=== PATIENT | female | born 1935 | race Caucasian/White ===

== ENCOUNTER → 2017-06-29 | Outpatient (CLI) | payer MEDICARE | END | disposition home or self-care (01) | LOC: PLD 07:24 → LAB SHORT 07:24 | DX: D48.5 Neoplasm of uncertain behavior of skin (principal) | CPT/HCPCS: 88305 ==

== ENCOUNTER → 2017-10-14 | Outpatient (CLI) | payer MEDICARE ==
[2017-10-16 10:35] LABS: Stool Occult Bld Immuno 1 Negative (NEGATIVE); Stool Occult Bld Immuno 2 Negative (NEGATIVE)
== END ==
LOC: OLS 08:55 → LAB SHORT 08:55
PROVIDERS: Internal Medicine Gastroenterology
DX: R19.4 Change in bowel habit (principal)
CPT/HCPCS: 82274

== ENCOUNTER 2019-08-18 05:22 | Inpatient (IN) | payer MEDICARE ==
[~2019-08-18] VITALS: Ht 157.5 cm; Wt 61.3 kg
[2019-08-18] MEDS ORDERED: Jantoven4 MG PO (05:30)
[2019-08-18] MEDS ORDERED: ATOR10 PO (05:31)
[2019-08-18] MEDS ORDERED: LOSARTAN-HCTZ1 EAC3 PO (05:31)
[2019-08-18] MEDS ORDERED: POTA8 PO (05:31)
[2019-08-18] MEDS ORDERED: ATENOLOL25 MG PO (05:31)
[2019-08-18 05:55] LABS: Source, Urine Voided
[2019-08-18 05:58] LABS: Bilirubin, Urine Neg (Neg); Blood, Urine 3+ (Neg); Glucose Qualitative, Urine Neg (Neg); Ketones, Urine 1+ (Neg); Leukocyte Esterase, Urine 1+ (Neg); Nitrite, Urine Neg (Neg); Protein, Urine Neg (Neg); Specific Gravity, Urine 1.025 (1.003-1.022); Urobilinogen, Urine NORM (Normal)
[2019-08-18 06:03] LABS: Appearance, Urine Hazy (Clear); Color, Urine Yellow (P-Yellow)
[2019-08-18 06:05] LABS: Bacteria Mod /hpf; Squamous Epithelial Cells Mod /hpf (Few); White Blood Cells, Urine 0-2 /hpf (0-5)
[2019-08-18 06:06] LABS: Mucus Light (0-Heavy)
[2019-08-18 06:10] LABS: Alanine Aminotransfer (ALT/SGP 36 U/L (12-78); Albumin, Blood 3.4 g/dL (3.4-5.0); Albumin/Globulin Ratio 0.8 (0.8-1.8); Alk Phos 103 U/L (50-136); Anion Gap 7 mmol/L (6-16); Aspartate Aminotrans (AST/SGOT 33 U/L (12-37); Bilirubin, Total 0.9 mg/dL (0.1-1.0); Blood Urea Nitrogen 26 mg/dL (8-24); Bun/Creatinine Ratio 45.9 (12.0-20.0); CO2, Blood 25 mmol/L (21-32); Calcium, Blood 9.3 mg/dL (8.5-10.1); Chloride, Blood 106 mmol/L (98-108); Creatinine, Blood 0.57 mg/dL (0.40-1.00); Globulin, Blood 4.2 g/dL (2.2-4.0); Glomerular Filtration Rate >60 (60-); Glucose, Blood 160 mg/dL (70-99); Potassium, Blood 3.9 mmol/L (3.5-5.5); Sodium, Blood 138 mmol/L (136-145); Total Protein, Blood 7.6 g/dL (6.4-8.2)
[2019-08-18 08:18] LABS: BASOPHILS ABSOLUTE AUTO 0.02 K/mm3 (0.00-0.23); BASOPHILS PERCENT AUTO 0 % (0-2); EOSINOPHILS ABSOLUTE AUTO 0.02 K/mm3 (0.00-0.68); EOSINOPHILS PERCENT AUTO 0 % (0-6); Hematocrit 40.9 % (33.0-51.0); Hemoglobin 15.3 g/dL (11.5-16.0); IMMATURE GRAN ABSOLUTE AUTO 0.02 K/mm3 (0.00-0.10); IMMATURE GRAN PERCENT AUTO 0 % (0-1); LYMPHOCYTES PERCENT AUTO 10 % (21-46); MONOCYTES ABSOLUTE AUTO 0.46 K/mm3 (0.16-1.47); MONOCYTES PERCENT AUTO 7 % (4-13); Mean Corpuscular HGB 38.6 pg (26.0-34.0); Mean Corpuscular HGB Conc 37.4 g/dL (31.5-36.5); Mean Corpuscular Volume 103 fL (80-100); Mean Platelet Volume 10.3 fL (9.1-12.4); NEUTROPHILS PERCENT AUTO 82 % (41-73); Platelet Count 160 K/mm3 (150-400); RDW Coefficient Variation 15.6 % (11.7-14.2); Red Blood Cell Count 3.96 M/mm3 (3.80-5.20); White Blood Cell Count 6.72 K/mm3 (4.00-11.30)
[2019-08-18 12:25] LABS: International Normalized Ratio 2.69; Prothrombin Time Results 27.2 Sec (9.7-11.5)
[2019-08-19 04:36] LABS: International Normalized Ratio 3.65; Prothrombin Time Results 36.3 Sec (9.7-11.5)
[2019-08-19 04:43] LABS: Alanine Aminotransfer (ALT/SGP 25 U/L (12-78); Albumin, Blood 2.8 g/dL (3.4-5.0); Albumin/Globulin Ratio 0.8 (0.8-1.8); Alk Phos 78 U/L (50-136); Anion Gap 8 mmol/L (6-16); Aspartate Aminotrans (AST/SGOT 22 U/L (12-37); Bilirubin, Total 1.8 mg/dL (0.1-1.0); Blood Urea Nitrogen 13 mg/dL (8-24); Bun/Creatinine Ratio 26.4 (12.0-20.0); CHOL/HDL RATIO 2.7; CO2, Blood 26 mmol/L (21-32); Calcium, Blood 8.5 mg/dL (8.5-10.1); Chloride, Blood 104 mmol/L (98-108); Cholesterol 114 mg/dL (50-200); Creatinine, Blood 0.49 mg/dL (0.40-1.00); Globulin, Blood 3.5 g/dL (2.2-4.0); Glomerular Filtration Rate >60 (60-); Glucose, Blood 102 mg/dL (70-99); HDL Cholesterol 42 mg/dL (>39); LDL/HDL RATIO 1.3; Low Density Lipoprotein Chol 55 mg/dL (0-110); Potassium, Blood 3.7 mmol/L (3.5-5.5); Sodium, Blood 138 mmol/L (136-145); Total Protein, Blood 6.3 g/dL (6.4-8.2); Triglycerides 83 mg/dL (30-160); Very Low Density Lipoprot Chol 16 mg/dL (6-32)
[2019-08-19 06:17] LABS: BASOPHILS ABSOLUTE AUTO 0.03 K/mm3 (0.00-0.23); BASOPHILS PERCENT AUTO 0 % (0-2); EOSINOPHILS ABSOLUTE AUTO 0.03 K/mm3 (0.00-0.68); EOSINOPHILS PERCENT AUTO 0 % (0-6); Hematocrit 40.3 % (33.0-51.0); Hemoglobin 14.7 g/dL (11.5-16.0); IMMATURE GRAN ABSOLUTE AUTO 0.04 K/mm3 (0.00-0.10); IMMATURE GRAN PERCENT AUTO 1 % (0-1); LYMPHOCYTES ABSOLUTE AUTO 0.71 K/mm3 (0.84-5.20); LYMPHOCYTES PERCENT AUTO 9 % (21-46); MONOCYTES ABSOLUTE AUTO 1.03 K/mm3 (0.16-1.47); MONOCYTES PERCENT AUTO 13 % (4-13); Mean Corpuscular HGB 37.5 pg (26.0-34.0); Mean Corpuscular HGB Conc 36.5 g/dL (31.5-36.5); Mean Corpuscular Volume 103 fL (80-100); Mean Platelet Volume 10.1 fL (9.1-12.4); NEUTROPHILS ABSOLUTE AUTO 6.25 K/mm3 (1.96-9.15); NEUTROPHILS PERCENT AUTO 77 % (41-73); NRBC ABSOLUTE 0.04 K/mm3 (0.00-0.02); NRBC Auto 0.5 /100 WBC (0.0-0.2); Platelet Count 159 K/mm3 (150-400); RDW Coefficient Variation 16.5 % (11.7-14.2); RDW Standard Deviation 49.1 fL (35.1-46.3); Red Blood Cell Count 3.92 M/mm3 (3.80-5.20); White Blood Cell Count 8.09 K/mm3 (4.00-11.30)
[2019-08-20 05:31] LABS: International Normalized Ratio 3.55; Prothrombin Time Results 35.4 Sec (9.7-11.5)
[2019-08-20 05:41] LABS: Alanine Aminotransfer (ALT/SGP 23 U/L (12-78); Albumin, Blood 2.6 g/dL (3.4-5.0); Albumin/Globulin Ratio 0.7 (0.8-1.8); Alk Phos 74 U/L (50-136); Anion Gap 6 mmol/L (6-16); Aspartate Aminotrans (AST/SGOT 21 U/L (12-37); Blood Urea Nitrogen 10 mg/dL (8-24); Bun/Creatinine Ratio 18.3 (12.0-20.0); CO2, Blood 26 mmol/L (21-32); Calcium, Blood 8.7 mg/dL (8.5-10.1); Chloride, Blood 107 mmol/L (98-108); Creatinine, Blood 0.55 mg/dL (0.40-1.00); Globulin, Blood 3.6 g/dL (2.2-4.0); Glomerular Filtration Rate >60 (60-); Glucose, Blood 105 mg/dL (70-99); Potassium, Blood 3.8 mmol/L (3.5-5.5); Sodium, Blood 139 mmol/L (136-145); Total Protein, Blood 6.2 g/dL (6.4-8.2)
[2019-08-20 06:32] LABS: BASOPHILS ABSOLUTE AUTO 0.03 K/mm3 (0.00-0.23); BASOPHILS PERCENT AUTO 0 % (0-2); EOSINOPHILS ABSOLUTE AUTO 0.07 K/mm3 (0.00-0.68); EOSINOPHILS PERCENT AUTO 1 % (0-6); Hematocrit 38.9 % (33.0-51.0); Hemoglobin 14.4 g/dL (11.5-16.0); IMMATURE GRAN ABSOLUTE AUTO 0.03 K/mm3 (0.00-0.10); IMMATURE GRAN PERCENT AUTO 0 % (0-1); LYMPHOCYTES ABSOLUTE AUTO 1.33 K/mm3 (0.84-5.20); LYMPHOCYTES PERCENT AUTO 15 % (21-46); MONOCYTES ABSOLUTE AUTO 1.45 K/mm3 (0.16-1.47); MONOCYTES PERCENT AUTO 16 % (4-13); Mean Corpuscular HGB 39.2 pg (26.0-34.0); Mean Platelet Volume 10.5 fL (9.1-12.4); NEUTROPHILS ABSOLUTE AUTO 6.07 K/mm3 (1.96-9.15); NEUTROPHILS PERCENT AUTO 68 % (41-73); Platelet Count 153 K/mm3 (150-400); RDW Coefficient Variation 16.6 % (11.7-14.2); RDW Standard Deviation 51.4 fL (35.1-46.3); Red Blood Cell Count 3.67 M/mm3 (3.80-5.20); White Blood Cell Count 8.98 K/mm3 (4.00-11.30)
[2019-08-20 06:34] LABS: Mean Corpuscular Volume 106 fL (80-100)
[2019-08-21 04:19] LABS: International Normalized Ratio 2.58; Prothrombin Time Results 26.2 Sec (9.7-11.5)
[2019-08-21 04:25] LABS: Alanine Aminotransfer (ALT/SGP 23 U/L (12-78); Albumin, Blood 2.5 g/dL (3.4-5.0); Albumin/Globulin Ratio 0.7 (0.8-1.8); Alk Phos 80 U/L (50-136); Anion Gap 5 mmol/L (6-16); Aspartate Aminotrans (AST/SGOT 24 U/L (12-37); Bilirubin, Total 2.5 mg/dL (0.1-1.0); Blood Urea Nitrogen 11 mg/dL (8-24); Bun/Creatinine Ratio 18.5 (12.0-20.0); CO2, Blood 27 mmol/L (21-32); Calcium, Blood 8.8 mg/dL (8.5-10.1); Chloride, Blood 109 mmol/L (98-108); Globulin, Blood 3.6 g/dL (2.2-4.0); Glomerular Filtration Rate >60 (60-); Glucose, Blood 110 mg/dL (70-99); Potassium, Blood 3.7 mmol/L (3.5-5.5); Sodium, Blood 141 mmol/L (136-145); Total Protein, Blood 6.1 g/dL (6.4-8.2)
[2019-08-21 04:27] LABS: BASOPHILS ABSOLUTE AUTO 0.02 K/mm3 (0.00-0.23); BASOPHILS PERCENT AUTO 0 % (0-2); EOSINOPHILS ABSOLUTE AUTO 0.09 K/mm3 (0.00-0.68); EOSINOPHILS PERCENT AUTO 1 % (0-6); Hematocrit 39.5 % (33.0-51.0); Hemoglobin 14.3 g/dL (11.5-16.0); IMMATURE GRAN ABSOLUTE AUTO 0.04 K/mm3 (0.00-0.10); IMMATURE GRAN PERCENT AUTO 1 % (0-1); LYMPHOCYTES ABSOLUTE AUTO 1.29 K/mm3 (0.84-5.20); LYMPHOCYTES PERCENT AUTO 15 % (21-46); MONOCYTES ABSOLUTE AUTO 1.58 K/mm3 (0.16-1.47); MONOCYTES PERCENT AUTO 18 % (4-13); Mean Corpuscular HGB 37.2 pg (26.0-34.0); Mean Corpuscular HGB Conc 36.2 g/dL (31.5-36.5); Mean Platelet Volume 10.1 fL (9.1-12.4); NEUTROPHILS ABSOLUTE AUTO 5.82 K/mm3 (1.96-9.15); NEUTROPHILS PERCENT AUTO 66 % (41-73); Platelet Count 162 K/mm3 (150-400); RDW Coefficient Variation 15.3 % (11.7-14.2); RDW Standard Deviation 49.5 fL (35.1-46.3); Red Blood Cell Count 3.84 M/mm3 (3.80-5.20); White Blood Cell Count 8.84 K/mm3 (4.00-11.30)
[2019-08-21 04:28] LABS: Mean Corpuscular Volume 103 fL (80-100)
[2019-08-22 04:18] LABS: International Normalized Ratio 1.88; Prothrombin Time Results 19.4 Sec (9.7-11.5)
[2019-08-22 04:21] LABS: BASOPHILS ABSOLUTE AUTO 0.02 K/mm3 (0.00-0.23); BASOPHILS PERCENT AUTO 0 % (0-2); EOSINOPHILS ABSOLUTE AUTO 0.19 K/mm3 (0.00-0.68); EOSINOPHILS PERCENT AUTO 2 % (0-6); Hematocrit 38.9 % (33.0-51.0); Hemoglobin 14.1 g/dL (11.5-16.0); IMMATURE GRAN ABSOLUTE AUTO 0.03 K/mm3 (0.00-0.10); IMMATURE GRAN PERCENT AUTO 0 % (0-1); LYMPHOCYTES ABSOLUTE AUTO 1.56 K/mm3 (0.84-5.20); LYMPHOCYTES PERCENT AUTO 19 % (21-46); MONOCYTES ABSOLUTE AUTO 1.52 K/mm3 (0.16-1.47); MONOCYTES PERCENT AUTO 19 % (4-13); Mean Corpuscular HGB 36.6 pg (26.0-34.0); Mean Corpuscular HGB Conc 36.2 g/dL (31.5-36.5); Mean Corpuscular Volume 101 fL (80-100); Mean Platelet Volume 9.9 fL (9.1-12.4); NEUTROPHILS ABSOLUTE AUTO 4.77 K/mm3 (1.96-9.15); NEUTROPHILS PERCENT AUTO 59 % (41-73); Platelet Count 169 K/mm3 (150-400); RDW Coefficient Variation 14.6 % (11.7-14.2); RDW Standard Deviation 49.1 fL (35.1-46.3); Red Blood Cell Count 3.85 M/mm3 (3.80-5.20); White Blood Cell Count 8.09 K/mm3 (4.00-11.30)
[2019-08-22 04:29] LABS: Magnesium, Blood 1.9 mg/dL (1.6-2.4)
[2019-08-22 04:30] LABS: Alanine Aminotransfer (ALT/SGP 24 U/L (12-78); Albumin, Blood 2.6 g/dL (3.4-5.0); Albumin/Globulin Ratio 0.7 (0.8-1.8); Alk Phos 91 U/L (50-136); Anion Gap 6 mmol/L (6-16); Aspartate Aminotrans (AST/SGOT 20 U/L (12-37); Bilirubin, Total 2.3 mg/dL (0.1-1.0); Blood Urea Nitrogen 12 mg/dL (8-24); Bun/Creatinine Ratio 22.5 (12.0-20.0); CO2, Blood 26 mmol/L (21-32); Chloride, Blood 107 mmol/L (98-108); Creatinine, Blood 0.53 mg/dL (0.40-1.00); Globulin, Blood 3.8 g/dL (2.2-4.0); Glomerular Filtration Rate >60 (60-); Glucose, Blood 95 mg/dL (70-99); Potassium, Blood 3.7 mmol/L (3.5-5.5); Sodium, Blood 139 mmol/L (136-145); Total Protein, Blood 6.4 g/dL (6.4-8.2)
[2019-08-23 05:50] LABS: International Normalized Ratio 1.7; Prothrombin Time Results 17.7 Sec (9.7-11.5)
[2019-08-23 06:13] LABS: Alanine Aminotransfer (ALT/SGP 27 U/L (12-78); Albumin, Blood 2.5 g/dL (3.4-5.0); Albumin/Globulin Ratio 0.6 (0.8-1.8); Alk Phos 104 U/L (50-136); Anion Gap 8 mmol/L (6-16); Aspartate Aminotrans (AST/SGOT 29 U/L (12-37); Bilirubin, Total 1.5 mg/dL (0.1-1.0); Blood Urea Nitrogen 11 mg/dL (8-24); Bun/Creatinine Ratio 21.5 (12.0-20.0); CO2, Blood 24 mmol/L (21-32); Calcium, Blood 8.9 mg/dL (8.5-10.1); Chloride, Blood 107 mmol/L (98-108); Creatinine, Blood 0.51 mg/dL (0.40-1.00); Globulin, Blood 3.9 g/dL (2.2-4.0); Glomerular Filtration Rate >60 (60-); Glucose, Blood 94 mg/dL (70-99); Potassium, Blood 3.8 mmol/L (3.5-5.5); Sodium, Blood 139 mmol/L (136-145); Total Protein, Blood 6.4 g/dL (6.4-8.2)
[2019-08-24 05:25] LABS: International Normalized Ratio 1.38; Prothrombin Time Results 14.5 Sec (9.7-11.5)
[2019-08-25 05:07] LABS: Alanine Aminotransfer (ALT/SGP 38 U/L (12-78); Albumin, Blood 2.8 g/dL (3.4-5.0); Albumin/Globulin Ratio 0.7 (0.8-1.8); Alk Phos 114 U/L (50-136); Anion Gap 5 mmol/L (6-16); Aspartate Aminotrans (AST/SGOT 35 U/L (12-37); BASOPHILS ABSOLUTE AUTO 0.03 K/mm3 (0.00-0.23); BASOPHILS PERCENT AUTO 0 % (0-2); Bilirubin, Total 1.2 mg/dL (0.1-1.0); Blood Urea Nitrogen 12 mg/dL (8-24); Bun/Creatinine Ratio 18.9 (12.0-20.0); CO2, Blood 28 mmol/L (21-32); Calcium, Blood 9.2 mg/dL (8.5-10.1); Chloride, Blood 106 mmol/L (98-108); Creatinine, Blood 0.63 mg/dL (0.40-1.00); EOSINOPHILS ABSOLUTE AUTO 0.02 K/mm3 (0.00-0.68); EOSINOPHILS PERCENT AUTO 0 % (0-6); Glomerular Filtration Rate >60 (60-); Glucose, Blood 103 mg/dL (70-99); Hematocrit 40.6 % (33.0-51.0); Hemoglobin 14.4 g/dL (11.5-16.0); IMMATURE GRAN ABSOLUTE AUTO 0.04 K/mm3 (0.00-0.10); IMMATURE GRAN PERCENT AUTO 1 % (0-1); LYMPHOCYTES ABSOLUTE AUTO 1.14 K/mm3 (0.84-5.20); LYMPHOCYTES PERCENT AUTO 16 % (21-46); MONOCYTES ABSOLUTE AUTO 1.23 K/mm3 (0.16-1.47); MONOCYTES PERCENT AUTO 17 % (4-13); Mean Corpuscular HGB 35.9 pg (26.0-34.0); Mean Corpuscular HGB Conc 35.5 g/dL (31.5-36.5); Mean Corpuscular Volume 101 fL (80-100); NEUTROPHILS ABSOLUTE AUTO 4.71 K/mm3 (1.96-9.15); NEUTROPHILS PERCENT AUTO 66 % (41-73); Platelet Count 227 K/mm3 (150-400); Potassium, Blood 4.3 mmol/L (3.5-5.5); RDW Coefficient Variation 14.2 % (11.7-14.2); RDW Standard Deviation 47.6 fL (35.1-46.3); Red Blood Cell Count 4.01 M/mm3 (3.80-5.20); Sodium, Blood 139 mmol/L (136-145); Total Protein, Blood 6.8 g/dL (6.4-8.2); White Blood Cell Count 7.17 K/mm3 (4.00-11.30)
[2019-08-25] MEDS ORDERED: ACET325 PO (13:36)
== END 2019-08-25 14:39 | disposition home or self-care (01) | DRG 415 ==
LOC: ER 05:22 → MEDS 05:23 → ER 05:23 → MEDS 05:23 → ENPENDDIS 08-25 12:00 → MEDS 08-25 14:39
PROVIDERS: Emergency Medicine; Family Medicine; Internal Medicine Gastroenterology; Surgery; ADMIT Family Medicine
PROC: 0FJ44ZZ Inspection of Gallbladder, Percutaneous Endoscopic Approach (ICD-10-PCS; 2019-08-24)
PROC: 0FT40ZZ Resection of Gallbladder, Open Approach (ICD-10-PCS; principal; 2019-08-24 07:30)
DX: K85.10 Biliary acute pancreatitis without necrosis or infection (principal); I50.32 Chronic diastolic (congestive) heart failure; K86.3 Pseudocyst of pancreas; I11.0 Hypertensive heart disease with heart failure; K80.20 Calculus of gallbladder without cholecystitis without obstruction; I48.91 Unspecified atrial fibrillation; Z79.01 Long term (current) use of anticoagulants; K74.60 Unspecified cirrhosis of liver; E78.5 Hyperlipidemia, unspecified; K21.9 Gastro-esophageal reflux disease without esophagitis; Z88.0 Allergy status to penicillin; Z88.2 Allergy status to sulfonamides; Z87.891 Personal history of nicotine dependence; G47.30 Sleep apnea, unspecified
CPT/HCPCS: 36415; 71046; 74176; 74181; 74300; 76705; 80053; 80061; 81001; 82947; 83605; 83690; 83735; 83880; 85025; 85610; 87086; 88304; 93005; 93010; 96361; 96374; 96375; 96376; 97110; 97116; 97162; 97530; 99285-25; A9270; A9270-GY; C1894; G0378; J0694; J1100; J1170; J1885; J2250; J2270; J2405; J2704; J2710; J3010; J7030; J7120

== ENCOUNTER → 2019-09-05 | Outpatient (CLI) | payer MEDICARE ==
[~2019-09-05] MED LIST: ACET325 PO; ATENOLOL25 MG PO; ATOR10 PO; Jantoven4 MG PO; LOSARTAN-HCTZ1 EAC3 PO; POTA8 PO
[2019-09-05 16:12] LABS: Albumin, Blood 3.6 g/dL (3.4-5.0); Albumin/Globulin Ratio 0.9 (0.8-1.8); Bilirubin, Direct 0.3 mg/dL (0.0-0.3); Bilirubin, Indirect 0.6 mg/dL (0.1-0.7); Bilirubin, Total 0.9 mg/dL (0.1-1.0); Globulin, Blood 4.1 g/dL (2.2-4.0); Total Protein, Blood 7.7 g/dL (6.4-8.2)
== END ==
LOC: LAB SHORT 15:56 → LAB 15:56
PROVIDERS: Student in an Organized Health Care Education/Training Program
DX: K74.60 Unspecified cirrhosis of liver (principal)
CPT/HCPCS: 80076

== ENCOUNTER → 2019-09-06 | Outpatient (CLI) | payer MEDICARE ==
[2019-09-06 16:10] LABS: International Normalized Ratio 3.1; Prothrombin Time Results 31.1 Sec (9.7-11.5)
== END ==
LOC: LAB HH 14:28
PROVIDERS: Student in an Organized Health Care Education/Training Program
DX: Z79.01 Long term (current) use of anticoagulants (principal); Z51.81 Encounter for therapeutic drug level monitoring
CPT/HCPCS: 85610

== ENCOUNTER → 2019-09-14 | Outpatient (CLI) | payer MEDICARE ==
[2019-09-14 18:39] LABS: International Normalized Ratio 3.05; Prothrombin Time Results 30.6 Sec (9.7-11.5)
== END ==
LOC: LAB 18:19 → LAB SHORT 18:19
PROVIDERS: Student in an Organized Health Care Education/Training Program
DX: Z48.815 Encounter for surgical aftercare following surgery on the digestive system (principal); K85.10 Biliary acute pancreatitis without necrosis or infection
CPT/HCPCS: 85610

== ENCOUNTER → 2020-02-24 | Outpatient (CLI) | payer MEDICARE | LOC: LAB EV 13:36 → LAB SHORT 13:36 | DX: S61.451A Open bite of right hand, initial encounter (principal) | CPT/HCPCS: 87070; 87075; 87205 ==

== ENCOUNTER 2020-04-24 13:10 | Inpatient (IN) | payer MEDICARE ==
[~2020-04-24] VITALS: Ht 157.5 cm; Wt 61.2 kg
[2020-04-24 13:57] LABS: Alanine Aminotransfer (ALT/SGP 42 U/L (12-78); Albumin, Blood 3.7 g/dL (3.4-5.0); Albumin/Globulin Ratio 0.9 (0.8-1.8); Alk Phos 94 U/L (50-136); Anion Gap 5 mmol/L (6-16); Aspartate Aminotrans (AST/SGOT 43 U/L (12-37); Bilirubin, Total 1.8 mg/dL (0.1-1.0); Blood Urea Nitrogen 21 mg/dL (8-24); Bun/Creatinine Ratio 45.9 (12.0-20.0); CO2, Blood 29 mmol/L (21-32); Calcium, Blood 9.9 mg/dL (8.5-10.1); Chloride, Blood 105 mmol/L (98-108); Creatinine, Blood 0.46 mg/dL (0.40-1.00); Glomerular Filtration Rate >60 (60-); Glucose, Blood 115 mg/dL (70-99); Sodium, Blood 139 mmol/L (136-145); Total Protein, Blood 7.7 g/dL (6.4-8.2)
[2020-04-24 14:06] LABS: BASOPHILS ABSOLUTE AUTO 0.03 K/mm3 (0.00-0.23); BASOPHILS PERCENT AUTO 0 % (0-2); EOSINOPHILS ABSOLUTE AUTO 0.04 K/mm3 (0.00-0.68); EOSINOPHILS PERCENT AUTO 1 % (0-6); Hematocrit 44.1 % (33.0-51.0); Hemoglobin 16.3 g/dL (11.5-16.0); IMMATURE GRAN ABSOLUTE AUTO 0.01 K/mm3 (0.00-0.10); IMMATURE GRAN PERCENT AUTO 0 % (0-1); LYMPHOCYTES ABSOLUTE AUTO 1.46 K/mm3 (0.84-5.20); LYMPHOCYTES PERCENT AUTO 22 % (21-46); MONOCYTES PERCENT AUTO 12 % (4-13); Mean Corpuscular HGB 39.1 pg (26.0-34.0); Mean Corpuscular Volume 106 fL (80-100); Mean Platelet Volume 10.8 fL (9.1-12.4); NEUTROPHILS ABSOLUTE AUTO 4.45 K/mm3 (1.96-9.15); NEUTROPHILS PERCENT AUTO 66 % (41-73); Platelet Count 158 K/mm3 (150-400); RDW Coefficient Variation 17.2 % (11.7-14.2); RDW Standard Deviation 52.3 fL (35.1-46.3); Red Blood Cell Count 4.17 M/mm3 (3.80-5.20); White Blood Cell Count 6.79 K/mm3 (4.00-11.30)
[2020-04-24 15:04] LABS: International Normalized Ratio 2.6; Prothrombin Time Results 26.4 Sec (9.7-11.5)
[2020-04-24 17:42] LABS: Appearance, Urine Hazy (Clear); Bilirubin, Urine Neg (Neg); Blood, Urine 3+ (Neg); Color, Urine Yellow (P-Yellow); Glucose Qualitative, Urine Neg (Neg); Ketones, Urine 1+ (Neg); Leukocyte Esterase, Urine 3+ (Neg); Nitrite, Urine Neg (Neg); Protein, Urine Neg (Neg); Urobilinogen, Urine NORM (Normal)
[2020-04-24 17:59] LABS: Red Blood Cells, Urine 0-2 /hpf (0-2); Squamous Epithelial Cells Mod /hpf (Few)
[2020-04-24 18:00] LABS: Bacteria Few /hpf
[2020-04-24 18:25] LABS: Very Low Density Lipoprot Chol 21 mg/dL (6-32)
[2020-04-24 18:26] LABS: CHOL/HDL RATIO 2.4; Cholesterol 136 mg/dL (50-200); HDL Cholesterol 56 mg/dL (>39); LDL/HDL RATIO 1.1; Low Density Lipoprotein Chol 59 mg/dL (0-110); Triglycerides 106 mg/dL (30-160)
--- NOTE | 2020-04-24 20:30 | NUR ---
REPORT RECEIVED FROM DARBY ESPAÑA RN. PT TRANSFERRED TO MEDICAL FLOOR VIA GURNEY, STAND-PIVOT TRANSFERRED FROM GURNEY TO BED. ORIENTED TO ROOM AND UNIT, AND USE OF CALL LIGHT. PT STATES PAIN IS TOLERABLE AT THIS TIME, NO N/V/D NOTED. NPO AT THIS TIME. CALL LIGHT, POSSESSIONS IN REACH, BED IN LOW POSITION. WCTM.
[2020-04-25 02:18] LABS: Source, Urine Clean Catch
[2020-04-25 02:24] LABS: Bilirubin, Urine Neg (Neg); Blood, Urine 2+ (Neg); Glucose Qualitative, Urine Neg (Neg); Ketones, Urine 1+ (Neg); Leukocyte Esterase, Urine 2+ (Neg); Nitrite, Urine Neg (Neg); Protein, Urine Neg (Neg); Urobilinogen, Urine NORM (Normal)
[2020-04-25 02:25] LABS: Appearance, Urine Clear (Clear); Color, Urine Yellow (P-Yellow)
[2020-04-25 02:30] LABS: Bacteria Mod /hpf; Squamous Epithelial Cells Few /hpf (Few)
[2020-04-25 05:19] LABS: International Normalized Ratio 3.04; Prothrombin Time Results 30.5 Sec (9.7-11.5)
[2020-04-25 05:44] LABS: Alanine Aminotransfer (ALT/SGP 53 U/L (12-78); Albumin, Blood 3.1 g/dL (3.4-5.0); Albumin/Globulin Ratio 0.9 (0.8-1.8); Alk Phos 123 U/L (50-136); Anion Gap 8 mmol/L (6-16); Aspartate Aminotrans (AST/SGOT 46 U/L (12-37); Bilirubin, Total 2.4 mg/dL (0.1-1.0); Blood Urea Nitrogen 15 mg/dL (8-24); Bun/Creatinine Ratio 33.3 (12.0-20.0); CO2, Blood 25 mmol/L (21-32); Calcium, Blood 8.9 mg/dL (8.5-10.1); Chloride, Blood 108 mmol/L (98-108); Creatinine, Blood 0.45 mg/dL (0.40-1.00); Globulin, Blood 3.4 g/dL (2.2-4.0); Glomerular Filtration Rate >60 (60-); Glucose, Blood 58 mg/dL (70-99); Potassium, Blood 3.7 mmol/L (3.5-5.5); Sodium, Blood 141 mmol/L (136-145); Total Protein, Blood 6.5 g/dL (6.4-8.2)
--- NOTE | 2020-04-25 05:44 | NUR ---
SHIFT SUMMARY PT RESTING COMFORTABLY, NO S/S ACUTE DISTRESS NOTED. WAS MONITORED EVERY 1-2 HOURS WITH NEEDS MET. VS REVIEWED, WNL. PT STATES PAIN IS IMPROVED, 06/27. NO EPISODES N/V/D NOTED, PT HAS BEEN NPO SINCE ARRIVAL. UP TO BSC WITH 1 ASSIST. U/A DONE, PENDING CULTURE. DENIES NEEDS AT THIS TIME. CALL LIGHT, POSSESSIONS IN REACH, WCTM, REPORT OFF TO ONCOMING RN.
[2020-04-25 06:17] LABS: BASOPHILS ABSOLUTE AUTO 0.02 K/mm3 (0.00-0.23); BASOPHILS PERCENT AUTO 0 % (0-2); EOSINOPHILS PERCENT AUTO 2 % (0-6); Hematocrit 39.6 % (33.0-51.0); Hemoglobin 14.7 g/dL (11.5-16.0); IMMATURE GRAN ABSOLUTE AUTO 0.01 K/mm3 (0.00-0.10); IMMATURE GRAN PERCENT AUTO 0 % (0-1); LYMPHOCYTES ABSOLUTE AUTO 1.19 K/mm3 (0.84-5.20); LYMPHOCYTES PERCENT AUTO 19 % (21-46); MONOCYTES ABSOLUTE AUTO 0.81 K/mm3 (0.16-1.47); MONOCYTES PERCENT AUTO 13 % (4-13); Mean Corpuscular HGB 39.5 pg (26.0-34.0); Mean Corpuscular HGB Conc 37.1 g/dL (31.5-36.5); Mean Platelet Volume 11.1 fL (9.1-12.4); NEUTROPHILS PERCENT AUTO 66 % (41-73); Platelet Count 147 K/mm3 (150-400); RDW Standard Deviation 52.3 fL (35.1-46.3); Red Blood Cell Count 3.72 M/mm3 (3.80-5.20); White Blood Cell Count 6.33 K/mm3 (4.00-11.30)
[2020-04-25 06:22] LABS: Mean Corpuscular Volume 107 fL (80-100)
[2020-04-26 05:25] LABS: Prothrombin Time Results 39.7 Sec (9.7-11.5)
[2020-04-26 05:33] LABS: International Normalized Ratio 4.01
--- NOTE | 2020-04-26 05:43 | NUR ---
SHIFT SUMMARY PT IS AN 85 Y/O FEMALE, ADMITTED FOR ACUTE PANCREATITIS. SHE IS A&O X 4, 1[place] [facility] NO BM DURING THE NIGHT. PT DENIED ANY ACUTE ABD PAIN OR NAUSEA, AND TOLERATED FULL LIQUID DINNER WELL. SHE IS RECEIVING NS @ 125 ML/HR. VITAL SIGNS STABLE. NO ACUTE CHANGES IN PT CONDITION NOTED. WILL CONTINUE TO MONITOR AND TREAT PER EMAR UNTIL HAND OFF TO DAY SHIFT RN.
[2020-04-26] MEDS ORDERED: MIRALAX17 GM PO (13:03)
[2020-04-26] MEDS ORDERED: SENN187 PO (13:04)
[2020-04-26] MEDS ORDERED: OMEP20ER PO (13:05)
--- NOTE | 2020-04-26 15:10 | NUR ---
PT DISCHARGED THE PT VERBALIZED UNDERSTANDING OF THE DC INSTRUCTIONS, THE PTS PRESCRIPTIONS WERE FAXED TO [facility] REQUESTED, THE PT APPEARED TO BE BREATHING EASILY AT THE TIME OF DC, THE PT WAS TRANSFERED VIA WHEELCHAIR ACCOMPANIED BY SRI APPIAH, PT WAS DINESH
== END 2020-04-26 14:56 | disposition home or self-care (01) | DRG 439 ==
LOC: ER 13:10 → MEDS 13:11
PROVIDERS: Emergency Medicine; ADMIT Internal Medicine
DX: K85.90 Acute pancreatitis without necrosis or infection, unspecified (principal); I48.20 Chronic atrial fibrillation, unspecified; K86.2 Cyst of pancreas; I10 Essential (primary) hypertension; E78.5 Hyperlipidemia, unspecified; K57.30 Diverticulosis of large intestine without perforation or abscess without bleeding; E80.6 Other disorders of bilirubin metabolism; N28.1 Cyst of kidney, acquired; Z79.01 Long term (current) use of anticoagulants; Z88.0 Allergy status to penicillin; Z88.2 Allergy status to sulfonamides
CPT/HCPCS: 36415; 74177; 76705; 80053; 80061; 81001; 83690; 84484; 85025; 85610; 87086; 93005; 93010; 96374-59; 96375; 96376; 99285-25; C9113; G0378; J2405; J3010; J7030; Q9967

== ENCOUNTER 2020-05-30 13:23 | Emergency (ER) | payer MEDICARE ==
[~2020-05-30] VITALS: Ht 157.5 cm; Wt 56.7 kg
[~2020-05-30 13:23] MED LIST changes: +MIRALAX17 GM PO; +OMEP20ER PO; +SENN187 PO
[2020-05-30 13:57] LABS: Alanine Aminotransfer (ALT/SGP 34 U/L (12-78); Albumin, Blood 3.4 g/dL (3.4-5.0); Albumin/Globulin Ratio 0.8 (0.8-1.8); Alk Phos 99 U/L (50-136); Anion Gap 3 mmol/L (6-16); Aspartate Aminotrans (AST/SGOT 30 U/L (12-37); Bilirubin, Total 1.3 mg/dL (0.1-1.0); Blood Urea Nitrogen 18 mg/dL (8-24); Bun/Creatinine Ratio 38.3 (12.0-20.0); CO2, Blood 31 mmol/L (21-32); Calcium, Blood 9.4 mg/dL (8.5-10.1); Chloride, Blood 106 mmol/L (98-108); Creatinine, Blood 0.47 mg/dL (0.40-1.00); Globulin, Blood 4.2 g/dL (2.2-4.0); Glomerular Filtration Rate >60 (60-); Glucose, Blood 123 mg/dL (70-99); Potassium, Blood 4.1 mmol/L (3.5-5.5); Sodium, Blood 140 mmol/L (136-145); Total Protein, Blood 7.6 g/dL (6.4-8.2)
[2020-05-30 16:27] LABS: BASOPHILS ABSOLUTE AUTO 0.03 K/mm3 (0.00-0.23); BASOPHILS PERCENT AUTO 1 % (0-2); EOSINOPHILS ABSOLUTE AUTO 0.12 K/mm3 (0.00-0.68); EOSINOPHILS PERCENT AUTO 2 % (0-6); Hemoglobin 15.8 g/dL (11.5-16.0); IMMATURE GRAN ABSOLUTE AUTO 0.01 K/mm3 (0.00-0.10); IMMATURE GRAN PERCENT AUTO 0 % (0-1); LYMPHOCYTES ABSOLUTE AUTO 1.19 K/mm3 (0.84-5.20); LYMPHOCYTES PERCENT AUTO 20 % (21-46); MONOCYTES ABSOLUTE AUTO 0.78 K/mm3 (0.16-1.47); MONOCYTES PERCENT AUTO 13 % (4-13); Mean Corpuscular HGB 36.6 pg (26.0-34.0); Mean Corpuscular HGB Conc 35.9 g/dL (31.5-36.5); Mean Corpuscular Volume 102 fL (80-100); NEUTROPHILS ABSOLUTE AUTO 3.76 K/mm3 (1.96-9.15); NEUTROPHILS PERCENT AUTO 64 % (41-73); NRBC ABSOLUTE 0.02 K/mm3 (0.00-0.02); NRBC Auto 0.3 /100 WBC (0.0-0.2); RDW Coefficient Variation 15.5 % (11.7-14.2); RDW Standard Deviation 50.9 fL (35.1-46.3); Red Blood Cell Count 4.32 M/mm3 (3.80-5.20); White Blood Cell Count 5.89 K/mm3 (4.00-11.30)
[2020-05-30 16:31] LABS: Mean Platelet Volume 11.9 fL (9.1-12.4); Platelet Count 158 K/mm3 (150-400)
[2020-05-30] MEDS ORDERED: OMEPRAZOLE MAGN20 MG PO (16:47)
== END 2020-05-30 17:43 | disposition home or self-care (01) ==
LOC: ER 13:23
PROVIDERS: Emergency Medicine
DX: K86.2 Cyst of pancreas (principal); I10 Essential (primary) hypertension; I48.91 Unspecified atrial fibrillation; Z79.01 Long term (current) use of anticoagulants; Z79.899 Other long term (current) drug therapy; Z88.0 Allergy status to penicillin; Z88.2 Allergy status to sulfonamides; Z91.09 Other allergy status, other than to drugs and biological substances
CPT/HCPCS: 74177; 80053; 83690; 85025; 93005; 93010; 96361; 96374-59; 99284-25; J2405; J7030; Q9967

== ENCOUNTER 2020-11-10 00:55 | Emergency (ER) | payer MEDICARE ==
[~2020-11-10] VITALS: Ht 157.5 cm; Wt 52.6 kg
[~2020-11-10 00:55] MED LIST changes: +OMEPRAZOLE MAGN20 MG PO
[2020-11-10] MEDS ORDERED: HYDCHL12.5 PO (01:14)
[2020-11-10] MEDS ORDERED: LOSARTAN POTAS100 M1 PO (01:14)
[2020-11-10 01:45] LABS: Alanine Aminotransfer (ALT/SGP 38 U/L (12-78); Albumin, Blood 3.5 g/dL (3.4-5.0); Albumin/Globulin Ratio 0.8 (0.8-1.8); Alk Phos 116 U/L (50-136); Anion Gap 5 mmol/L (6-16); Aspartate Aminotrans (AST/SGOT 33 U/L (12-37); Bilirubin, Total 0.9 mg/dL (0.1-1.0); Blood Urea Nitrogen 18 mg/dL (8-24); Bun/Creatinine Ratio 40.1 (12.0-20.0); CO2, Blood 30 mmol/L (21-32); Calcium, Blood 9.5 mg/dL (8.5-10.1); Chloride, Blood 103 mmol/L (98-108); Creatinine, Blood 0.45 mg/dL (0.40-1.00); Globulin, Blood 4.3 g/dL (2.2-4.0); Glomerular Filtration Rate >60 (60-); Glucose, Blood 162 mg/dL (70-99); Potassium, Blood 4.1 mmol/L (3.5-5.5); Sodium, Blood 138 mmol/L (136-145); Total Protein, Blood 7.8 g/dL (6.4-8.2)
[2020-11-10 02:27] LABS: BASOPHILS ABSOLUTE AUTO 0.02 K/mm3 (0.00-0.23); BASOPHILS PERCENT AUTO 0 % (0-2); EOSINOPHILS ABSOLUTE AUTO 0.03 K/mm3 (0.00-0.68); EOSINOPHILS PERCENT AUTO 0 % (0-6); Hematocrit 38.3 % (33.0-51.0); Hemoglobin 15.2 g/dL (11.5-16.0); IMMATURE GRAN ABSOLUTE AUTO 0.02 K/mm3 (0.00-0.10); IMMATURE GRAN PERCENT AUTO 0 % (0-1); LYMPHOCYTES ABSOLUTE AUTO 1.26 K/mm3 (0.84-5.20); LYMPHOCYTES PERCENT AUTO 15 % (21-46); MONOCYTES ABSOLUTE AUTO 0.54 K/mm3 (0.16-1.47); MONOCYTES PERCENT AUTO 6 % (4-13); Mean Corpuscular HGB 41.4 pg (26.0-34.0); Mean Corpuscular HGB Conc 39.7 g/dL (31.5-36.5); Mean Corpuscular Volume 104 fL (80-100); Mean Platelet Volume 11.2 fL (9.1-12.4); NEUTROPHILS ABSOLUTE AUTO 6.68 K/mm3 (1.96-9.15); NEUTROPHILS PERCENT AUTO 78 % (41-73); Platelet Count 170 K/mm3 (150-400); RDW Coefficient Variation 16.3 % (11.7-14.2); RDW Standard Deviation 48.5 fL (35.1-46.3); Red Blood Cell Count 3.67 M/mm3 (3.80-5.20); White Blood Cell Count 8.55 K/mm3 (4.00-11.30)
[2020-11-10 02:31] LABS: International Normalized Ratio 2.38; Prothrombin Time Results 24.5 Sec (9.7-11.5)
[2020-11-10] MEDS ORDERED: ONDA4ODT MM (03:02)
== END 2020-11-10 05:12 | disposition home or self-care (01) ==
LOC: ER 00:55
PROVIDERS: Student in an Organized Health Care Education/Training Program
DX: K85.90 Acute pancreatitis without necrosis or infection, unspecified (principal); I48.91 Unspecified atrial fibrillation; I10 Essential (primary) hypertension; K21.9 Gastro-esophageal reflux disease without esophagitis; Z79.899 Other long term (current) drug therapy; Z79.01 Long term (current) use of anticoagulants; Z88.0 Allergy status to penicillin; Z88.2 Allergy status to sulfonamides; Z91.09 Other allergy status, other than to drugs and biological substances
CPT/HCPCS: 36415; 80053; 83690; 85025; 85610; 93005; 93010; 96374; 96375; 99284-25; A9270; J1885; J2405

== ENCOUNTER → 2020-11-26 | Outpatient (CLI) | payer MEDICARE ==
[~2020-11-26] MED LIST changes: +HYDCHL12.5 PO; +LOSARTAN POTAS100 M1 PO; +ONDA4ODT MM
== END | disposition home or self-care (01) ==
LOC: LAB SHORT 10:58
DX: L82.1 Other seborrheic keratosis (principal); D48.5 Neoplasm of uncertain behavior of skin
CPT/HCPCS: 88305

== ENCOUNTER 2021-09-27 01:07 | Day surgery (SDC) | payer MEDICARE | END 2021-09-27 22:58 | disposition home or self-care (01) | LOC: WOUND 01:07 | DX: L25.9 Unspecified contact dermatitis, unspecified cause (principal); G60.9 Hereditary and idiopathic neuropathy, unspecified; R32 Unspecified urinary incontinence; Z88.0 Allergy status to penicillin; Z87.891 Personal history of nicotine dependence; I48.91 Unspecified atrial fibrillation | CPT/HCPCS: A9270; G0463 ==

== ENCOUNTER 2021-10-04 01:14 | Day surgery (SDC) | payer MEDICARE | END 2021-10-04 23:22 | disposition home or self-care (01) | LOC: WOUND 01:14 | DX: L25.9 Unspecified contact dermatitis, unspecified cause (principal); G60.9 Hereditary and idiopathic neuropathy, unspecified; S31.809S Unspecified open wound of unspecified buttock, sequela; B37.9 Candidiasis, unspecified; R32 Unspecified urinary incontinence | CPT/HCPCS: A9270; G0463 ==

== ENCOUNTER 2021-10-11 05:28 | Day surgery (SDC) | payer MEDICARE | END 2021-10-11 22:39 | disposition home or self-care (01) | LOC: WOUND 05:28 | DX: L24.A2 Irritant contact dermatitis due to fecal, urinary or dual incontinence (principal); G60.9 Hereditary and idiopathic neuropathy, unspecified; S31.809S Unspecified open wound of unspecified buttock, sequela; X58.XXXS Exposure to other specified factors, sequela; R32 Unspecified urinary incontinence; B37.9 Candidiasis, unspecified | CPT/HCPCS: A9270; G0463 ==

== ENCOUNTER 2021-10-30 03:11 | Emergency (ER) | payer MEDICARE ==
[~2021-10-30] VITALS: Ht 157.5 cm; Wt 50.8 kg
[~2021-10-30 03:11] MED LIST changes: -Jantoven4 MG PO; +WARF4 PO
[2021-10-30 03:51] LABS: Albumin, Blood 3.4 g/dL (3.4-5.0); Albumin/Globulin Ratio 0.8 (0.8-1.8); Bilirubin, Total 0.8 mg/dL (0.1-1.0); Bun/Creatinine Ratio 39.4 (12.0-20.0); Calcium, Blood 9.6 mg/dL (8.5-10.1); Creatinine, Blood 0.43 mg/dL (0.40-1.00); Globulin, Blood 4.1 g/dL (2.2-4.0); Potassium, Blood 3.7 mmol/L (3.5-5.5); Total Protein, Blood 7.5 g/dL (6.4-8.2)
[2021-10-30 03:59] LABS: International Normalized Ratio 2.74; Prothrombin Time Results 26.9 Sec (9.7-11.5)
[2021-10-30 07:24] LABS: BASOPHILS ABSOLUTE AUTO 0.04 K/mm3 (0.00-0.23); BASOPHILS PERCENT AUTO 1 % (0-2); EOSINOPHILS ABSOLUTE AUTO 0.14 K/mm3 (0.00-0.68); EOSINOPHILS PERCENT AUTO 2 % (0-6); Hematocrit 40.2 % (33.0-51.0); Hemoglobin 14.7 g/dL (11.5-16.0); IMMATURE GRAN ABSOLUTE AUTO 0.02 K/mm3 (0.00-0.10); IMMATURE GRAN PERCENT AUTO 0 % (0-1); LYMPHOCYTES PERCENT AUTO 21 % (21-46); MONOCYTES PERCENT AUTO 14 % (4-13); Mean Corpuscular HGB 37.2 pg (26.0-34.0); Mean Corpuscular Volume 102 fL (80-100); NEUTROPHILS ABSOLUTE AUTO 3.55 K/mm3 (1.96-9.15); NEUTROPHILS PERCENT AUTO 62 % (41-73); RDW Coefficient Variation 14.8 % (11.7-14.2); Red Blood Cell Count 3.95 M/mm3 (3.80-5.20); White Blood Cell Count 5.75 K/mm3 (4.00-11.30)
[2021-10-30 07:27] LABS: Mean Platelet Volume 11.8 fL (9.1-12.4); Platelet Count 175 K/mm3 (150-400)
[2021-10-30 07:28] LABS: Mean Corpuscular HGB Conc 36.6 g/dL (31.5-36.5)
== END 2021-10-30 07:33 | disposition home or self-care (01) ==
LOC: ER 03:11
PROVIDERS: Emergency Medicine
DX: M54.9 Dorsalgia, unspecified (principal); I48.91 Unspecified atrial fibrillation; Z79.01 Long term (current) use of anticoagulants
CPT/HCPCS: 36415; 71045; 80053; 83690; 84484; 85025; 85610; 93005; 93010; 99284-25

== ENCOUNTER 2021-11-01 01:36 | Day surgery (SDC) | payer MEDICARE | END 2021-11-01 22:55 | disposition home or self-care (01) | LOC: WOUND | DX: L24.A2 Irritant contact dermatitis due to fecal, urinary or dual incontinence (principal); G60.9 Hereditary and idiopathic neuropathy, unspecified; S31.809S Unspecified open wound of unspecified buttock, sequela; X58.XXXS Exposure to other specified factors, sequela; R32 Unspecified urinary incontinence; B37.9 Candidiasis, unspecified | CPT/HCPCS: A9270; G0463 ==

== ENCOUNTER → 2021-11-07 | Outpatient (CLI) | payer MEDICARE ==
[2021-11-07 13:58] LABS: BASOPHILS ABSOLUTE AUTO 0.04 K/mm3 (0.00-0.23); BASOPHILS PERCENT AUTO 1 % (0-2); EOSINOPHILS ABSOLUTE AUTO 0.13 K/mm3 (0.00-0.68); EOSINOPHILS PERCENT AUTO 2 % (0-6); Hematocrit 41.9 % (33.0-51.0); IMMATURE GRAN ABSOLUTE AUTO 0.02 K/mm3 (0.00-0.10); IMMATURE GRAN PERCENT AUTO 0 % (0-1); LYMPHOCYTES ABSOLUTE AUTO 0.99 K/mm3 (0.84-5.20); LYMPHOCYTES PERCENT AUTO 18 % (21-46); MONOCYTES ABSOLUTE AUTO 0.85 K/mm3 (0.16-1.47); MONOCYTES PERCENT AUTO 15 % (4-13); Mean Corpuscular HGB 36.1 pg (26.0-34.0); Mean Corpuscular Volume 101 fL (80-100); Mean Platelet Volume 11.4 fL (9.1-12.4); NEUTROPHILS ABSOLUTE AUTO 3.53 K/mm3 (1.96-9.15); NEUTROPHILS PERCENT AUTO 64 % (41-73); NRBC ABSOLUTE 0.03 K/mm3 (0.00-0.02); NRBC Auto 0.5 /100 WBC (0.0-0.2); RDW Coefficient Variation 14.7 % (11.7-14.2); RDW Standard Deviation 48.5 fL (35.1-46.3); Red Blood Cell Count 4.15 M/mm3 (3.80-5.20); White Blood Cell Count 5.56 K/mm3 (4.00-11.30)
[2021-11-07 14:02] LABS: Platelet Count 195 K/mm3 (150-400)
[2021-11-07 14:03] LABS: Mean Corpuscular HGB Conc 35.8 g/dL (31.5-36.5)
[2021-11-07 15:14] LABS: Alanine Aminotransfer (ALT/SGP 30 U/L (12-78); Albumin, Blood 3.4 g/dL (3.4-5.0); Albumin/Globulin Ratio 0.8 (0.8-1.8); Alk Phos 114 U/L (50-136); Anion Gap 6 mmol/L (6-16); Aspartate Aminotrans (AST/SGOT 27 U/L (12-37); Bilirubin, Total 1.1 mg/dL (0.1-1.0); Blood Urea Nitrogen 22 mg/dL (8-24); CHOL/HDL RATIO 2.8; CO2, Blood 32 mmol/L (21-32); Chloride, Blood 102 mmol/L (98-108); Cholesterol 147 mg/dL (50-200); Creatinine, Blood 0.46 mg/dL (0.40-1.00); Globulin, Blood 4.1 g/dL (2.2-4.0); Glomerular Filtration Rate 93 (60-); Glucose, Blood 97 mg/dL (70-99); HDL Cholesterol 52 mg/dL (>39); LDL/HDL RATIO 1.4; Low Density Lipoprotein Chol 75 mg/dL (0-110); Potassium, Blood 4.3 mmol/L (3.5-5.5); Sodium, Blood 140 mmol/L (136-145); Total Protein, Blood 7.5 g/dL (6.4-8.2); Triglycerides 99 mg/dL (30-160); Very Low Density Lipoprot Chol 19 mg/dL (6-32)
== END | disposition home or self-care (01) ==
LOC: LAB SHORT 11:28 → LAB 11:28
PROVIDERS: Family Medicine
DX: I10 Essential (primary) hypertension (principal); E78.2 Mixed hyperlipidemia; R73.03 Prediabetes
CPT/HCPCS: 36415; 80053; 80061; 83036; 85025

== ENCOUNTER 2021-11-25 00:41 | Day surgery (SDC) | payer MEDICARE | END 2021-11-25 23:05 | disposition home or self-care (01) | LOC: WOUND 00:41 | DX: L25.9 Unspecified contact dermatitis, unspecified cause (principal); G60.9 Hereditary and idiopathic neuropathy, unspecified; R32 Unspecified urinary incontinence; B37.9 Candidiasis, unspecified | CPT/HCPCS: G0463 ==

== ENCOUNTER 2021-12-09 05:42 | Day surgery (SDC) | payer MEDICARE | END 2021-12-09 23:24 | disposition home or self-care (01) | LOC: WOUND 05:42 | DX: L24.A2 Irritant contact dermatitis due to fecal, urinary or dual incontinence (principal); G60.9 Hereditary and idiopathic neuropathy, unspecified; S31.809S Unspecified open wound of unspecified buttock, sequela; R32 Unspecified urinary incontinence; B37.9 Candidiasis, unspecified | CPT/HCPCS: G0463 ==

== ENCOUNTER 2021-12-23 01:47 | Day surgery (SDC) | payer MEDICARE | END 2021-12-23 23:09 | disposition home or self-care (01) | LOC: WOUND 01:47 | DX: L25.9 Unspecified contact dermatitis, unspecified cause (principal); R32 Unspecified urinary incontinence; S31.809A Unspecified open wound of unspecified buttock, initial encounter; G60.9 Hereditary and idiopathic neuropathy, unspecified; B37.9 Candidiasis, unspecified | CPT/HCPCS: G0463 ==

== ENCOUNTER 2022-02-28 03:21 | Day surgery (SDC) | payer MEDICARE | END 2022-02-28 23:30 | disposition home or self-care (01) | LOC: WOUND 03:21 | DX: L24.A2 Irritant contact dermatitis due to fecal, urinary or dual incontinence (principal); G60.9 Hereditary and idiopathic neuropathy, unspecified; S31.809S Unspecified open wound of unspecified buttock, sequela; X58.XXXS Exposure to other specified factors, sequela; R32 Unspecified urinary incontinence; B37.9 Candidiasis, unspecified | CPT/HCPCS: G0463 ==

== ENCOUNTER 2022-03-09 14:17 | Observation (INO) | payer MEDICARE ==
[~2022-03-09] VITALS: Ht 157.5 cm; Wt 52.2 kg
[2022-03-09 16:34] LABS: Albumin, Blood 3.7 g/dL (3.4-5.0); Albumin/Globulin Ratio 0.9 (0.8-1.8); Bilirubin, Total 1.2 mg/dL (0.1-1.0); Bun/Creatinine Ratio 39.2 (12.0-20.0); Calcium, Blood 9.3 mg/dL (8.5-10.1); Creatinine, Blood 0.36 mg/dL (0.40-1.00); Globulin, Blood 4.3 g/dL (2.2-4.0); Potassium, Blood 3.7 mmol/L (3.5-5.5)
[2022-03-09 17:07] LABS: BASOPHILS ABSOLUTE AUTO 0.02 K/mm3 (0.00-0.23); BASOPHILS PERCENT AUTO 0 % (0-2); EOSINOPHILS PERCENT AUTO 0 % (0-6); IMMATURE GRAN ABSOLUTE AUTO 0.02 K/mm3 (0.00-0.10); IMMATURE GRAN PERCENT AUTO 0 % (0-1); LYMPHOCYTES ABSOLUTE AUTO 0.76 K/mm3 (0.84-5.20); LYMPHOCYTES PERCENT AUTO 15 % (21-46); MONOCYTES ABSOLUTE AUTO 1.24 K/mm3 (0.16-1.47); MONOCYTES PERCENT AUTO 24 % (4-13); NEUTROPHILS ABSOLUTE AUTO 3.08 K/mm3 (1.96-9.15); NEUTROPHILS PERCENT AUTO 60 % (41-73); White Blood Cell Count 5.12 K/mm3 (4.00-11.30)
[2022-03-09 17:46] LABS: International Normalized Ratio 1.6; Prothrombin Time Results 16.3 Sec (9.7-11.5)
[2022-03-09 17:58] LABS: Magnesium, Blood 1.8 mg/dL (1.6-2.4)
[2022-03-09 18:00] LABS: Thyroid Stimulating Hormone 1.41 uIU/mL (0.360-4.800)
[2022-03-09 18:15] LABS: Hematocrit 23.6 % (33.0-51.0); Mean Corpuscular HGB 69.4 pg (26.0-34.0); Mean Platelet Volume 10.5 fL (9.1-12.4); Platelet Count 140 K/mm3 (150-400)
[2022-03-09 20:58] LABS: Source, Urine Clean Catch
[2022-03-09 21:08] LABS: Appearance, Urine Clear (Clear); Bilirubin, Urine Neg (Neg); Blood, Urine 4+ (Neg); Color, Urine Yellow (P-Yellow); Glucose Qualitative, Urine Neg (Neg); Ketones, Urine 3+ (Neg); Leukocyte Esterase, Urine Neg (Neg); Nitrite, Urine Neg (Neg); Protein, Urine 2+ (Neg); Urobilinogen, Urine 1+ (Normal)
[2022-03-09 21:29] LABS: U Amphetamine Screen Not Detected; U Barbituate Screen Not Detected; U Benzodiazapine Screen Not Detected; U Buprenorphine Screen Not Detected; U Cannabinoids Screen Not Detected; U Cocaine Screen Not Detected; U Methadone Screen Not Detected; U Methamphetamine Screen Not Detected; U Opiates Screen Not Detected; U Oxycodone Screen Not Detected; U Phencyclidine Screen Not Detected; U Propoxyphene Screen Not Detected
[2022-03-09 22:03] LABS: Squamous Epithelial Cells Few /hpf (Few); White Blood Cells, Urine 0-2 /hpf (0-5)
[2022-03-09 22:04] LABS: Amorphous Light (0-Heavy); Bacteria Few /hpf; Hyaline Casts 0-2 /lpf (0-2); Mucus Light (0-Heavy)
[2022-03-09 22:28] LABS: SARS-Cov-2 (COVID-19) PCR, MMC POSITIVE (NEGATIVE)
[2022-03-09] MEDS ORDERED: SERT100 PO (23:10)
[2022-03-09] MEDS ORDERED: WARF4 PO (23:12)
[2022-03-10 00:20] LABS: Hematocrit 42.9 % (33.0-51.0)
--- NOTE | 2022-03-10 00:21 | NUR ---
PER LAB, THEY WERE FINALLY ABLE TO GET A HGB AND HCT RESULTS FOR PT, HBG IS 14.7 AND HCT IS 42.9. WILL LET PRIMARY RN KNOW.
[2022-03-10 00:23] LABS: Hemoglobin 14.7 g/dL (11.5-16.0)
--- NOTE | 2022-03-10 05:17 | NUR ---
SHIFT SUMMARY PT NEW ED ADMIT THIS EVENING. PT FEELING WEAK AND FATIGUED. HAS REMAINED IN BED THROUGHOUT THE NIGHT. BILATERAL FEET PURPLE. PULSES VERY DIFFICULT TO PALPATE. PULSES MARKED. PT ALSO HAS OLD PRESSURE SORE TO COCCYX THAT SHE HAS BEEN GOING TO THE [facility]OUND [facility]IN[facility] OUTPATIENT. PICTURES TAKEN AND PLACED IN CHART. PT HAS GENETIC CONDITION THAT MAKES BLOOD CLUMP. COLD AGGLUTININ PRESENT. SPECIMENS HAD TO BE PRE-WARMED >60 MINUTES TO OBTAIN RESULT. COVID POSITIVE. PT ON PROTONIX DRIP DUE TO CONCERN FOR BLEED. PT SLEPT MUCH OF THE NIGHT ONCE LEFT TO REST. TELEMETRY READING AFIB 90'S. VITAL SIGNS STABLE.
[2022-03-10 08:43] LABS: International Normalized Ratio 1.56; Prothrombin Time Results 15.9 Sec (9.7-11.5)
[2022-03-10 09:36] LABS: Hematocrit 37.3 % (33.0-51.0)
--- NOTE | 2022-03-10 16:51 | NUR ---
PT HAS RESTED IN BED ALL DAY. AOX4 AND COOPERATIVE OF CARE. PT WAS UNHAPPY ABOUT NOT BEING ABLE TO EAT EALIER IN SHIFT,BUT DR LEWIS APPROVED PT TO EAT. PT TOLERATING HER CARDIAC DIET WELL. PT NO DISTRESS NOTED AT THIS TIME. CALL LIGHT WITHIN REACH WILL CONTINUE TO MONITOR.
[2022-03-10 18:08] LABS: BASOPHILS ABSOLUTE AUTO 0.02 K/mm3 (0.00-0.23); BASOPHILS PERCENT AUTO 1 % (0-2); EOSINOPHILS ABSOLUTE AUTO 0.01 K/mm3 (0.00-0.68); EOSINOPHILS PERCENT AUTO 0 % (0-6); Hematocrit 38.9 % (33.0-51.0); Hemoglobin 13.3 g/dL (11.5-16.0); IMMATURE GRAN ABSOLUTE AUTO 0.01 K/mm3 (0.00-0.10); IMMATURE GRAN PERCENT AUTO 0 % (0-1); LYMPHOCYTES ABSOLUTE AUTO 0.78 K/mm3 (0.84-5.20); LYMPHOCYTES PERCENT AUTO 21 % (21-46); MONOCYTES ABSOLUTE AUTO 0.89 K/mm3 (0.16-1.47); MONOCYTES PERCENT AUTO 24 % (4-13); Mean Corpuscular HGB 33.6 pg (26.0-34.0); Mean Corpuscular Volume 98 fL (80-100); NEUTROPHILS ABSOLUTE AUTO 2.03 K/mm3 (1.96-9.15); NEUTROPHILS PERCENT AUTO 54 % (41-73); RDW Coefficient Variation 15.9 % (11.7-14.2); RDW Standard Deviation 50.9 fL (35.1-46.3); Red Blood Cell Count 3.96 M/mm3 (3.80-5.20); White Blood Cell Count 3.74 K/mm3 (4.00-11.30)
[2022-03-10 18:12] LABS: Mean Platelet Volume 10.2 fL (9.1-12.4); Platelet Count 148 K/mm3 (150-400)
[2022-03-10 18:15] LABS: Mean Corpuscular HGB Conc 34.2 g/dL (31.5-36.5)
--- NOTE | 2022-03-11 03:28 | NUR ---
A/OX 3-4; FORGETFUL AND IRRITABLE. COOPERATIVE WITH CARE. C/O DISCOMFORT TO BLE; REPOSITIONED FREQUENTLY. TELE: A-FIB HR 70's. 2-3+ EDEMA BLE (ELEVATED THROUGHOUT SHIFT). LUNGS CTA, ROOM AIR, DRY COUGH (INFREQUENT). 2-3X ASSIST WITH GAITBELT PIVOT/TURN TO BSC. INC AND IN BRIEFS. FOAM DRESSING COCCYX CDI. BED ALARM. CALL LIGHT IN REACH; ENCOURAGED TO MAKE NEEDS KNOWN. FREQUENT ROUNDING /ANTICIPATION OF NEEDS. COVID PRECAUTIONS MAINTAINED PER PROTOCOL.
[2022-03-11 05:58] LABS: International Normalized Ratio 2.17; Prothrombin Time Results 21.7 Sec (9.7-11.5)
[2022-03-11 10:28] LABS: Albumin, Blood 3.1 g/dL (3.4-5.0); Albumin/Globulin Ratio 0.8 (0.8-1.8); Bilirubin, Total 0.9 mg/dL (0.1-1.0); Bun/Creatinine Ratio 35.1 (12.0-20.0); Calcium, Blood 8.8 mg/dL (8.5-10.1); Creatinine, Blood 0.43 mg/dL (0.40-1.00); Potassium, Blood 3.5 mmol/L (3.5-5.5); Total Protein, Blood 7.1 g/dL (6.4-8.2)
[2022-03-11 14:14] LABS: Source, Urine Straight Cath
[2022-03-11 14:29] LABS: Appearance, Urine Clear (Clear); Bilirubin, Urine Neg (Neg); Blood, Urine 2+ (Neg); Color, Urine Yellow (P-Yellow); Glucose Qualitative, Urine Neg (Neg); Ketones, Urine Neg (Neg); Leukocyte Esterase, Urine Neg (Neg); Nitrite, Urine Neg (Neg); Protein, Urine Neg (Neg); Urobilinogen, Urine 1+ (Normal)
[2022-03-11 14:58] LABS: White Blood Cells, Urine 0-2 /hpf (0-5)
[2022-03-11 14:59] LABS: Bacteria Few /hpf; Squamous Epithelial Cells Not Seen /hpf (Few)
--- NOTE | 2022-03-11 16:33 | NUR ---
PT AOX3 MORE CONFUSION TODAY AND DR LEWIS WAS NOTIFED. PT HAVING A HARDER TIME KNOWING WHERE SHE IS. DR LEWIS ORDERED A UA WITH STRAIGHT CATH. PT TOLERATED WELL. PT HAS BEEN INCONTENT, BUT HAS TRIED TO USE COMMODE AND IS A HEAVY TWO PERSON ASSIST. PT HAS ALSO BEEN SEEING KITTENS AND SOME BUGS IN HER ROOM THIS WAS ALSO REPORTED TO DR LEWIS. CALL LIGHT IS WITHIN REACH AND BED ALARM IS PLACED WILL CONTINUE TO MONITOR.
[2022-03-12 06:15] LABS: International Normalized Ratio 3.25; Prothrombin Time Results 31.6 Sec (9.7-11.5)
[2022-03-12 06:59] LABS: Bun/Creatinine Ratio 34.8 (12.0-20.0); Calcium, Blood 9.2 mg/dL (8.5-10.1); Creatinine, Blood 0.4 mg/dL (0.40-1.00); Potassium, Blood 3.6 mmol/L (3.5-5.5)
--- NOTE | 2022-03-12 07:11 | NUR ---
ALERT TO SELF; VERY CONFUSED THIS SHIFT - CYCLICAL CONVERSATION, REPETITION OF QUESTIONS, AND UNABLE TO REORIENT. IMPULSIVE; ATTEMPTED TO EXIT BED ALONE. LUNGS CTA WITH DRY COUGH (RARE). TELE: A-FIB. 2-3+ EDEMA BLE. COCCYX DRSG CHANGED. Q2 TURN; 2X ASSIST. BED ALARM SET. CALL LIGHT IN REACH; ENCOURAGED TO MAKE NEEDS KNOWN. COVID+ PRECAUTIONS MAINTAINED.
[2022-03-12 08:23] LABS: Hematocrit 39.9 % (33.0-51.0); Hemoglobin 13.5 g/dL (11.5-16.0); Mean Corpuscular HGB 33.3 pg (26.0-34.0); Mean Corpuscular Volume 98 fL (80-100); NRBC ABSOLUTE 0.03 K/mm3 (0.00-0.02); RDW Coefficient Variation 14.8 % (11.7-14.2); RDW Standard Deviation 51.4 fL (35.1-46.3); Red Blood Cell Count 4.06 M/mm3 (3.80-5.20); White Blood Cell Count 3.11 K/mm3 (4.00-11.30)
[2022-03-12 08:50] LABS: Platelet Count 147 K/mm3 (150-400)
[2022-03-12 08:55] LABS: BAND PERCENT MAN 1 % (0-8); BASOPHILS ABSOLUTE MAN 0.09 K/mm3 (0.00-0.23); BASOPHILS PERCENT MAN 3 % (0-2); EOSINOPHILS ABSOLUTE MAN 0.06 K/mm3 (0.00-0.68); EOSINOPHILS PERCENT MAN 2 % (0-6); LYMPHOCYTES PERCENT MAN 29 % (21-46); MONOCYTES ABSOLUTE MAN 0.55 K/mm3 (0.16-1.47); MONOCYTES PERCENT MAN 18 % (4-13); NEUTROPHILS ABSOLUTE MAN 1.49 K/mm3 (1.96-9.15); SEG NEUTROPHILS PERCENT MAN 47 % (41-73); TOTAL CELLS COUNTED 100
[2022-03-12 08:58] LABS: Mean Corpuscular HGB Conc 33.8 g/dL (31.5-36.5)
--- NOTE | 2022-03-12 11:20 | NUR ---
CALLED DR REGARDING BOWEL IMPACTION, WILL CONTINUE TO MONITOR AND TREAT DIRECTED
--- NOTE | 2022-03-12 16:15 | NUR ---
SHIFT SUMMARY- PT HALLUCINATING OFTEN DURING SHIFT, " ANOTHER MAN IN ROOM" PT EXPLAINS THAT SHE NEEDS TO "GET WORK DONE" AND "NEEDS TO GET OUT OF BED TO GO TO HER OFFICE" PT HAS BEEN IMPLUSIVE TRYING TO GET UP OUT OF BED. PT IS NOT REDIRECTABLE. PT APPETITE GOOD. TELE AFIB/AFLUTTER/BBB, ASYMPTOMATIC. IV PATENT, SALINE LOCKED. GAVE REPORT TO RN OF [address] RECOMMENDATION FOR CAMERA. TRANSFERED WITH BELONGINGS TO 347. WILL CONTACT SPOUSE.
--- NOTE | 2022-03-12 18:04 | NUR ---
TRANSFER NOTE PT TRANSFERED THIS AFTERNOON. REPORT RECEIVED FROM LEEANN AKERS. PT STILL ON ISOLATION PRECAUTIONS. PT TRANSFERRED SAFETLY.
--- NOTE | 2022-03-13 04:50 | NUR ---
POST EXCHANGE MANAGER SUMMARY AT THE BEGINNING OF SHIFT PT WAS CALLING OUT REPEATEDLY AND LOUDLY FOR "KATIE"; PT STATES KATIE IS HER . PT STATING SHE NEEDS TO "GET OUT OF HERE." PT C/O BM IN HER ATTENDS; CHECKED ATTENDS AND SHE WAS CLEAN AND DRY; PT BEGAN TO DIGITALLY DISIMPACT HER OWN BOWEL; PT WAS NOT REDIRECTABLE AND WOULD NOT STOP DIGGING IN HER RECTUM; SHE WAS PULLING OUT FECES AND SMEARING ON HER BEDDING; PLACED ON A BEDPAN AND PLACED IN SOFT WRIST RESTRAINTS TO PROTECT F/INJURY; DR GRIDER GAVE ORDER FOR WRIST RESTRAINTS AND SUPPOSITORY. PT WAS ABLE TO HAVE A MEDIUM, HARD, FORMED BM. AFTER BM AND CLEANING PT UP; SHE WAS CALMER AND ABLE TO VERBALIZE SHE WOULD CALL F/BATHROOM ASSISTANCE. ENDED RESTRAINTS AT 2200. PT REFUSED THE SUPPOSATORY AND STATED SHE DIDN'T FEEL THE NEED F/BM. STARTED PT MELATONIN W/NIGHT MEDS; PT CALMED AND WAS ABLE TO SLEEP WELL T/O THE NIGHT; WITHHELD 0400 VITALS TO ALLOW FOR SLEEP. PT REMAINS ON TELE; ATRIAL FLUTTER 82 BPM. PT CALL LIGHT IN REACH BUT MAY NOT CALL APPROPRIATELY; BED IS LOCKED AND ALARM IS ON; PT ROOM MONITORED BY CAMERA.
[2022-03-13 06:42] LABS: International Normalized Ratio 3.84; Prothrombin Time Results 36.9 Sec (9.7-11.5)
[2022-03-13 09:16] LABS: Albumin, Blood 3.4 g/dL (3.4-5.0); Albumin/Globulin Ratio 0.8 (0.8-1.8); Bun/Creatinine Ratio 29.9 (12.0-20.0); Calcium, Blood 9.5 mg/dL (8.5-10.1); Creatinine, Blood 0.33 mg/dL (0.40-1.00); Globulin, Blood 4.3 g/dL (2.2-4.0); Potassium, Blood 3.6 mmol/L (3.5-5.5); Total Protein, Blood 7.7 g/dL (6.4-8.2)
[2022-03-13 09:51] LABS: BASOPHILS ABSOLUTE AUTO 0.01 K/mm3 (0.00-0.23); BASOPHILS PERCENT AUTO 0 % (0-2); EOSINOPHILS ABSOLUTE AUTO 0.04 K/mm3 (0.00-0.68); EOSINOPHILS PERCENT AUTO 1 % (0-6); Hematocrit 41.5 % (33.0-51.0); Hemoglobin 14.9 g/dL (11.5-16.0); IMMATURE GRAN ABSOLUTE AUTO 0.03 K/mm3 (0.00-0.10); IMMATURE GRAN PERCENT AUTO 1 % (0-1); LYMPHOCYTES PERCENT AUTO 26 % (21-46); MONOCYTES PERCENT AUTO 16 % (4-13); Mean Corpuscular Volume 100 fL (80-100); NEUTROPHILS PERCENT AUTO 55 % (41-73); NRBC ABSOLUTE 0.04 K/mm3 (0.00-0.02); NRBC Auto 1.3 /100 WBC (0.0-0.2); RDW Coefficient Variation 15.4 % (11.7-14.2); Red Blood Cell Count 4.14 M/mm3 (3.80-5.20); White Blood Cell Count 3.08 K/mm3 (4.00-11.30)
[2022-03-13 10:10] LABS: Platelet Count 149 K/mm3 (150-400)
[2022-03-13 10:12] LABS: Mean Platelet Volume 9.7 fL (9.1-12.4)
[2022-03-13 10:18] LABS: Mean Corpuscular HGB Conc 35.9 g/dL (31.5-36.5)
--- NOTE | 2022-03-13 14:18 | NUR ---
PATIENT A/O X2-3, CONTINUES TO BE NONSENSICAL AND TIMES. INCONTINENT OF URINE, WEARING ATTENDS. CONTINENT OF BOWEL, HAD A MEDIUM FORMED STOOL TODAY. DRESSING CHANGED TO COCCYX WOUND THAT IS SCABBED OVER AND HEALING. VSS, ON RA. TOLERATING CARDIAC DIET. S/O AT BEDSIDE THIS AFTERNOON. DENIES ANY PAIN OR DISCOMFORT. 2+ EDEMA TO BLE, ELEVATING. PT/OT ORDERED. A-FLUTTER WITH BBB AND PVC'S IN THE 60'S ON TELE. DENIES ANY CP OR PRESSURE. FALL PREACAUTIONS IN PLACE, PATIENT USING CALL LIGHT APPROPRIATE FOR ASSISTANCE.
--- NOTE | 2022-03-14 04:49 | NUR ---
LABORATORY EQUIPMENT INSTALLER SUMMARY NO ACUTE CHANGES. PT WAS CALMER AND MORE COOPERTIVE W/CARE THIS SHIFT THAN PREVIOUS NIGHT. PT CAN ANSWER ORIENTATION BUT HAS EPISODES OF CONFUSION/DELLUSIONS OF CONVERSATION OR EVENTS THAT DIDN'T HAPPEN. CHAGED MEPILEX ON COCCYX THIS SHIFT; PT VIKTORIA TO REQUEST USE OF BED COLBY; PT ABILITY TO ASSIST MOVEMENT IS LIMITED. PT RECALLING CONVERSATIONS ABOUT GOING TO A NURSING FACILITY AND HAS ANXIETY ABOUT BEING IN A SNF. PT ON TELE; ABIB IN 80'S AND A FEW SHORT EPISODES OF SINUS LUTHER IN THE 40'S DURING SLEEP. PT SLEPT WELL T/O THE NIGHT. BED ALARM ON. CALL LIGHT IN REACH. ROOM MONITORED BY CAMERA.
[2022-03-14 06:37] LABS: International Normalized Ratio 3.21; Prothrombin Time Results 31.2 Sec (9.7-11.5)
--- NOTE | 2022-03-14 20:13 | NUR ---
SHIFT SUMMARY 86-YEAR-OLD, A&O X3-4, PTN NOTED TO BE COGNITIVE THIS SHIFT, PLEASANT. TELEMETRY DISCONTINUED THIS SHIFT. ISOLATION FOR COVID PRECAUTIONS, REPORTING BODY ACHES AND FATIGUE. TESTED AT HOME 10 DAYS AGO, BUT HERE JUST 5 DAYS SINCE TESTED, TO FOLLOW PRECAUTIONS. PTN CONTINENT/INCONTINENT, WEARING ATTENDS, BUT ABLE TO USE BEDPAN. THERE IS A HEALING WOUND TO THE COCCYX, COVERED BY MEPILEX. BLE DISCOLORED WITH A PURPLISH HUE. HX PVD. PTN LIVES AT HOME WITH KATIE, BUT MAY DISCHARGE TO SNF DUE TO WEAKNESS AND NEED FOR THERAPY. CONTINUE TO MONITOR.
[2022-03-15 05:32] LABS: International Normalized Ratio 2.31
--- NOTE | 2022-03-15 07:31 | NUR ---
SHIFT SUMMARY Pt alert and oriented x 3-4. VSS. Pleasant and able to make needs known. Pt has healing pressure ulcer wound to coccyx and mepilex drsg on. Pt requested to have mepilex removed and only wants barrier cream applied. Pt bedbound and wears attends, uses bedpan for bm. Denies pain. On droplet precaution for covid.
--- NOTE | 2022-03-15 18:32 | NUR ---
SHIFT SUMMARY PT HAS A FLAT AFFECT WHEN SPEAKING WITH STAFF. SHE CAN ANSWER ORIENTATION QUESTIONS, BUT IT IS DIFFUCULT TO HOLD A CONVERSATION WITH HER SHE IN NOT ENGAGED. DENIES PAIN, SOB, COUGH, OR OTHER COVID SYMPTOMS. SHE IS EAGER TO GO HOME. REMAINS CONTINENT IN CONTINENT WITH BRIEFS IN PLACE. SHE IS STILL WAITING FOR PLACEMENT. BE IN LOWEST POSITION AND CALL LIGHT IN PLACE.
[2022-03-16 05:30] LABS: International Normalized Ratio 2.11; Prothrombin Time Results 21.1 Sec (9.7-11.5)
--- NOTE | 2022-03-16 05:59 | NUR ---
SHIFT SUMMARY Alert and oriented x 3-4. VSS. Pleasant and cooperative with care. Denies pain. Able to make needs known. Refused mepilex drsg for buttocks. Incontinent brief change x 4. Barrier cream applied to buttocks. No bm this shift.
--- NOTE | 2022-03-16 17:50 | NUR ---
SHIFT SUMMARY NO ACUTE CHANGES THIS SHIFT. NO COMPLAINTS OF PAIN OR SOB. SHE HAS A SLIGHT COUGH, BUT DENIES A NEED FOR A COUGH MEDICINE. BED IN LOWEST POSITION AND CALL LIGHT IN ORDER
[2022-03-17 05:20] LABS: International Normalized Ratio 2.67; Prothrombin Time Results 26.3 Sec (9.7-11.5)
--- NOTE | 2022-03-17 05:24 | NUR ---
SHIFT SUMMARY ALERT AND ORIENTED X 4. VSS. NO COMPLAINTS OF PAIN. CALLS APPROPRIATELY FOR ASSISTANCE. ON COVID ISOLATION. SLEPT WELL IN BETWEEN CARES. BED ALARM ON.
--- NOTE | 2022-03-17 17:10 | NUR ---
SHIFT SUMMARY NO ACUTE CHANGES. PT ANS UPDATED WITH PLAN FOR DISCHARGIN THE PT TO A SNF. BOTH WERE AGREEABLE WITH PLAN AND THE TIMELINE. BED IN LOWET POSITION AND CALL LIGHT IN REACH
--- NOTE | 2022-03-18 04:29 | NUR ---
SHIFT SUMMARY PT A&OX 4- PT DENIES PAIN- PT TURNED THROUGHOUT SHIFT- PT REPORTED ABLE TO SHIFT SELF OFF BOTTOM BUT REQUESTED TO HELP WITH TURNING- PT REQUESTED SACRAL BANDAGED BE REMOVED T/O NIGHT= PT REPORTED SHE WORKS WITH [facility] AND THAT THEY HAVE HER REMOVED AT NIGHT= CALMAZINE CREAM APPLIED- PT TOLERATED WELL
--- NOTE | 2022-03-18 06:04 | NUR ---
CALL FROM CORAZON BRADSHAW - PT ISOLATION THROUGH TOMORROW 03/19/22- PLAN FOR PT TO DISCHARGE TO [facility]
[2022-03-18 09:30] LABS: International Normalized Ratio 2.62; Prothrombin Time Results 25.8 Sec (9.7-11.5)
--- NOTE | 2022-03-18 17:21 | NUR ---
SHIFT SUMMARY PT AxOx4. PLEASANT AND COOPERATIVE WITH CARE WITH FLAT AFFECT. PT WORKED WITH PHYSICAL AND OCCUPATIONAL THERAPY. PT USING LEG BRACES, WHICH ARE ALLOWING HER TO PROGRESS FURTHER WITH THERAPY. PT'S IN ROOM THIS SHIFT, UPDATED ON PLAN OF CARE. PT DENIES RESPIRATORY SYMPTOMS. CURRENT PLAN IS FOR PATIENT TO DC TO SNF FOR REHAB IN THE NEXT COUPLE DAYS. PT IS CURRENTLY RESTING IN BED WITH CALL LIGHT IN REACH. PT DENIES PAIN. VITALS REVIEWED.
--- NOTE | 2022-03-19 05:18 | NUR ---
SHIFT SUMMARY PT CONTINUED TO BE ON ISOLATION FOR COVID T/O NIGHT- MESSAGE FOR CORAZON INFECTIOUS DISEASE TO SEE WHEN TO BE TAKEN OFF PRECAUTIONS PER CHARGE NURSE, PT A&O X 4- CALLS APPROPRIATE, PT INCONTIENT OF URINE- PT ABLE TO NOTIFY STAFF WHEN NEEDS TO BE CHANGED, CALMAZINE CREAM APPLIED TO BEDSORE, PT DENIED PUREWICK WHEN OFFERED = PLAN TO GO TO [facility] ON 03/21 PER PT AND REPORT
[2022-03-19 06:08] LABS: International Normalized Ratio 2.29; Prothrombin Time Results 22.8 Sec (9.7-11.5)
--- NOTE | 2022-03-19 17:23 | NUR ---
ALERT AND ORIENTED, FLAT EFFECT, AT BEDSIDE HELPFUL, WORKED WITH PT/OT, DENIES PAIN, MAKES NEEDS KNOWN, ATIVE BT, BED COLBY VS BSC, LEG BRACES ON FOR AMBULATION OR TRANSFERS. LS DIMINSHED IN THE BASES, NO SOB, MORE PERIPHERAL PULSES. DISCHARGED PLANNED FOR TOMORROW TO [facility]. NO ACUTE CHANGES, WILL RELAY TO PM RN
--- NOTE | 2022-03-20 05:21 | NUR ---
SHIFT SUMMARY PT A&O X4, CALLS APPROPRIATE- PT HAS TO BE ENCOURAGED TO CALL IF NEED BRIEF CHANGE- BEDSORE ON ADMISSION- CALMAZINE APPLIED-ISOLATION DISCONTINUED PER PROTOCOL-PLAN IS TO DISCHARGE TO [facility] TODAY 03/20/22
[2022-03-20 06:02] LABS: International Normalized Ratio 2.09; Prothrombin Time Results 20.9 Sec (9.7-11.5)
--- NOTE | 2022-03-20 11:55 | NUR ---
PT RESTING QUIETLY AT START OF SHIFT. WOKE EASILY FOR CARE. SITTING UPRIGHT IN BED TO EAT BREAKFAST. LATER TO CHAIR AT BS WITH P/T. LEG BRACES APPLIED. DR HUDSON HERE EARLY THIS AM TO SEE PT AND DISCUSS PLAN OF CARE. PT TO GO TO [facility] BEFORE GOING HOME. PT'S HERE LATER TO VISIT AND ASSIST WITH BELONGINGS AT TRANSPORT. UP TO [facility] FOR BM. BLE'S MOTTLED PURPLE D/T NERVE DISEASE. PT REPORTED NEUROPATHY IN FEET. CONTINENT OF BOWEL AND BLADDER THIS SHIFT. W/C TRANSPORT HERE TO TAKE PT OVER. REPORT CALLED TO BREONNA AT [facility].
== END 2022-03-20 11:31 ==
LOC: ER 14:17 → MEDS 14:18
PROVIDERS: Emergency Medicine; Internal Medicine; Student in an Organized Health Care Education/Training Program; ADMIT Internal Medicine
DX: R53.1 Weakness (principal); D64.9 Anemia, unspecified; U07.1 COVID-19; I48.91 Unspecified atrial fibrillation; I73.9 Peripheral vascular disease, unspecified; G60.0 Hereditary motor and sensory neuropathy; K92.2 Gastrointestinal hemorrhage, unspecified; I50.32 Chronic diastolic (congestive) heart failure; R41.0 Disorientation, unspecified; K59.00 Constipation, unspecified; Z88.0 Allergy status to penicillin; Z88.2 Allergy status to sulfonamides; Z91.048 Other nonmedicinal substance allergy status; Z79.01 Long term (current) use of anticoagulants
CPT/HCPCS: 36415; 71045; 72131; 80048; 80053; 81001; 82728; 83540; 83550; 83735; 84443; 84484; 85014; 85018; 85025; 85610; 86850; 86900; 86901; 93005; 93010; 96374-59; 96375-59; 96376; 97110; 97110-CO; 97110-CQ; 97116; 97162; 97166; 97530; 97530-CO; 97530-CQ; 97535; 97535-CO; 99285-25; A9270; C9113; G0378; J2405; J7030; J7040; U0004

== ENCOUNTER 2022-04-09 01:56 | Day surgery (SDC) | payer MEDICARE ==
[~2022-04-09 01:56] MED LIST changes: +SERT100 PO
== END 2022-04-09 23:05 | disposition home or self-care (01) ==
LOC: WOUND 01:56
DX: Z09 Encounter for follow-up examination after completed treatment for conditions other than malignant neoplasm (principal); G60.9 Hereditary and idiopathic neuropathy, unspecified; L25.9 Unspecified contact dermatitis, unspecified cause; R32 Unspecified urinary incontinence; B37.9 Candidiasis, unspecified
CPT/HCPCS: A9270; G0463

== ENCOUNTER → 2022-06-13 | Outpatient (CLI) | payer MEDICARE ==
[2022-06-13 14:43] LABS: Source, Urine Voided
[2022-06-13 15:52] LABS: Appearance, Urine Hazy (Clear); Bilirubin, Urine Neg (Neg); Blood, Urine 1+ (Neg); Color, Urine Yellow (P-Yellow); Glucose Qualitative, Urine Neg (Neg); Ketones, Urine Neg (Neg); Leukocyte Esterase, Urine Neg (Neg); Nitrite, Urine Neg (Neg); Protein, Urine Neg (Neg); Specific Gravity, Urine 1.015 (1.003-1.022); Urobilinogen, Urine NORM (Normal); pH, Urine 6.5 (5.0-8.0)
[2022-06-13 16:18] LABS: Hyaline Casts 0-2 /lpf (0-2); Red Blood Cells, Urine 0-2 /hpf (0-2)
[2022-06-13 16:19] LABS: Bacteria Many /hpf; Squamous Epithelial Cells Mod /hpf (Few)
== END | disposition home or self-care (01) ==
LOC: LAB SHORT 14:41 → LAB 14:41
PROVIDERS: Family Medicine
DX: R30.0 Dysuria (principal)
CPT/HCPCS: 81001; 87077; 87086; 87186

== ENCOUNTER → 2022-10-02 | Outpatient (CLI) | payer MEDICARE ==
[2022-10-02 16:59] LABS: Source, Urine Clean Catch
[2022-10-02 17:21] LABS: Appearance, Urine Turbid (Clear); Bilirubin, Urine Neg (Neg); Blood, Urine 2+ (Neg); Color, Urine Yellow (P-Yellow); Glucose Qualitative, Urine Neg (Normal); Ketones, Urine Neg (Neg); Leukocyte Esterase, Urine 2+ (Neg); Nitrite, Urine Neg (Neg); Protein, Urine 1+ (Neg); Urobilinogen, Urine NORM (Normal)
[2022-10-02 17:22] LABS: Bacteria Many /hpf; Squamous Epithelial Cells Few /hpf (Few); White Blood Cells, Urine TNTC /hpf (0-5)
== END | disposition home or self-care (01) ==
LOC: LAB SHORT 16:58 → LAB 16:58
PROVIDERS: Family Medicine
DX: R32 Unspecified urinary incontinence (principal)
CPT/HCPCS: 81001; 87077; 87086; 87186

== ENCOUNTER → 2022-12-23 | Outpatient (CLI) | payer MEDICARE | LOC: LAB 15:00 | DX: N39.0 Urinary tract infection, site not specified (principal) ==

== ENCOUNTER → 2023-01-06 | Outpatient (CLI) | payer MEDICARE | LOC: LAB SHORT 11:45 → LAB 11:45 | DX: R30.0 Dysuria (principal) | CPT/HCPCS: 87086 ==

== ENCOUNTER → 2023-09-08 | Outpatient (CLI) | payer MEDICARE ==
[2023-09-08 11:24] LABS: Albumin, Blood 3.5 g/dL (3.4-5.0); Albumin/Globulin Ratio 0.8 (0.8-1.8); Bilirubin, Total 1.1 mg/dL (0.1-1.0); Bun/Creatinine Ratio 40.3 (12.0-20.0); Calcium, Blood 9.7 mg/dL (8.5-10.1); Creatinine, Blood 0.47 mg/dL (0.40-1.00); Globulin, Blood 4.3 g/dL (2.2-4.0); Potassium, Blood 3.8 mmol/L (3.5-5.5); Total Protein, Blood 7.8 g/dL (6.4-8.2)
[2023-09-08 12:49] LABS: BASOPHILS ABSOLUTE AUTO 0.05 K/mm3 (0.00-0.23); BASOPHILS PERCENT AUTO 1 % (0-2); EOSINOPHILS ABSOLUTE AUTO 0.41 K/mm3 (0.00-0.68); EOSINOPHILS PERCENT AUTO 9 % (0-6); IMMATURE GRAN ABSOLUTE AUTO 0.01 K/mm3 (0.00-0.10); IMMATURE GRAN PERCENT AUTO 0 % (0-1); LYMPHOCYTES ABSOLUTE AUTO 1.67 K/mm3 (0.84-5.20); LYMPHOCYTES PERCENT AUTO 36 % (21-46); MONOCYTES ABSOLUTE AUTO 0.74 K/mm3 (0.16-1.47); MONOCYTES PERCENT AUTO 16 % (4-13); NEUTROPHILS ABSOLUTE AUTO 1.76 K/mm3 (1.96-9.15); NEUTROPHILS PERCENT AUTO 38 % (41-73); Platelet Count 210 K/mm3 (150-400); White Blood Cell Count 4.64 K/mm3 (4.00-11.30)
== END | disposition home or self-care (01) ==
LOC: LAB 10:00 → LAB SHORT 10:00
PROVIDERS: Family Medicine
DX: E78.2 Mixed hyperlipidemia (principal); R60.0 Localized edema
CPT/HCPCS: 80053; 85025; 85379

== ENCOUNTER 2024-02-15 10:12 | Emergency (ER) | payer MEDICARE ==
[~2024-02-15] VITALS: Ht 157.5 cm; Wt 52.6 kg
[~2024-02-15 10:12] MED LIST changes: +WARF4
[2024-02-15] MEDS ORDERED: Morphine Sulfate 4 MG/1 ML Injection IV ONE (10:45)
[2024-02-15] MEDS ORDERED: Ondansetron HCl 2 MG / ML 2ML Vial IV ONE (10:50)
[2024-02-15] MEDS ORDERED: Acetaminophen 325 MG TABLET PO ONE (11:20)
[2024-02-15 11:44] LABS: Albumin, Blood 3.1 g/dL (3.4-5.0); Albumin/Globulin Ratio 0.6 (0.8-1.8); Bilirubin, Total 3.7 mg/dL (0.1-1.0); Bun/Creatinine Ratio 38.8 (12.0-20.0); Calcium, Blood 9.9 mg/dL (8.5-10.1); Creatinine, Blood 0.54 mg/dL (0.40-1.00); Potassium, Blood 4.8 mmol/L (3.5-5.5); Total Protein, Blood 8.1 g/dL (6.4-8.2)
[2024-02-15 11:53] LABS: International Normalized Ratio 4.15
[2024-02-15 11:58] LABS: Influenza A, PCR NEGATIVE (NEGATIVE); Influenza B, PCR NEGATIVE (NEGATIVE); Resp Syncytial Virus, PCR NEGATIVE (NEGATIVE); SARS-Cov-2 (COVID-19) PCR, MMC NEGATIVE (NEGATIVE)
[2024-02-15 13:08] LABS: BASOPHILS ABSOLUTE AUTO 0.02 K/mm3 (0.00-0.23); BASOPHILS PERCENT AUTO 0 % (0-2); EOSINOPHILS ABSOLUTE AUTO 0.01 K/mm3 (0.00-0.68); EOSINOPHILS PERCENT AUTO 0 % (0-6); IMMATURE GRAN ABSOLUTE AUTO 0.04 K/mm3 (0.00-0.10); IMMATURE GRAN PERCENT AUTO 1 % (0-1); LYMPHOCYTES ABSOLUTE AUTO 0.69 K/mm3 (0.84-5.20); LYMPHOCYTES PERCENT AUTO 9 % (21-46); MONOCYTES PERCENT AUTO 21 % (4-13); Mean Platelet Volume 11.1 fL (9.1-12.4); NEUTROPHILS ABSOLUTE AUTO 5.56 K/mm3 (1.96-9.15); NEUTROPHILS PERCENT AUTO 69 % (41-73); Platelet Count 161 K/mm3 (150-400); White Blood Cell Count 8.02 K/mm3 (4.00-11.30)
[2024-02-15 14:03] LABS: Calcium, Ionized (POC) 1.19 mmol/L (1.10-1.46); Chloride (POC) 96 mmol/L (98-108); Creatinine (POC) 0.6 mg/dL (0.6-1.0); Glucose (ISTAT POC) 91 mg/dL (70-99); Hemoglobin (POC) 13.9 g/dL (12.0-16.0); Potassium (POC) 4.7 mmol/L (3.5-5.5); Sodium (POC) 132 mmol/L (135-148); Total CO2 (POC) 26 mmol/L (21-32)
[2024-02-15] MEDS ORDERED: Mucinex600 MG PO (14:11)
[2024-02-15 14:45] VITALS: BP 109/72
== END 2024-02-15 16:00 | disposition home or self-care (01) ==
LOC: ER 10:12
PROVIDERS: Emergency Medicine
DX: R07.81 Pleurodynia (principal); R05.9 Cough, unspecified; I11.0 Hypertensive heart disease with heart failure; I50.9 Heart failure, unspecified; K21.9 Gastro-esophageal reflux disease without esophagitis; Z11.52 Encounter for screening for COVID-19; Z88.0 Allergy status to penicillin; Z88.2 Allergy status to sulfonamides; Z91.09 Other allergy status, other than to drugs and biological substances; Z79.899 Other long term (current) drug therapy; Z79.01 Long term (current) use of anticoagulants
CPT/HCPCS: 0241U; 71045; 80047; 80053; 83880; 84484; 85014; 85025; 85610; 93005; 93010; 99285-25; A9270

== ENCOUNTER 2024-02-16 09:21 | Inpatient (IN) | payer MEDICARE ==
[~2024-02-16] VITALS: Ht 157.5 cm; Wt 60.3 kg
[~2024-02-16 09:21] MED LIST changes: +Mucinex600 MG PO
[2024-02-16 11:07] LABS: Adenovirus Not Detected (NOT DETECT); Bordetella pertussis Not Detected (NOT DETECT); Chlamydophila pneumoniae Not Detected (NOT DETECT); Coronavirus 229E Not Detected (NOT DETECT); Coronavirus HKU1 Not Detected (NOT DETECT); Coronavirus NL63 Not Detected (NOT DETECT); Coronavirus OC43 Not Detected (NOT DETECT); Human Metapneumovirus Not Detected (NOT DETECT); Human Rhinovirus/Enterovirus Not Detected (NOT DETECT); Influenza A/2009-H1 Not Detected (NOT DETECT); Influenza A/H1 Not Detected (NOT DETECT); Influenza A/H3 Not Detected (NOT DETECT); Influenza B Not Detected (NOT DETECT); Mycoplasma pneumoniae Not Detected (NOT DETECT); Parainfluenza Virus 1 Not Detected (NOT DETECT); Parainfluenza Virus 2 Not Detected (NOT DETECT); Parainfluenza Virus 3 Not Detected (NOT DETECT); Parainfluenza Virus 4 Not Detected (NOT DETECT); Respiratory Syncytial Virus Not Detected (NOT DETECT); SARS-Cov-2 (COVID-19), BioFire Not Detected (NOT DETECT)
[2024-02-16] MEDS ORDERED: TraZODone HCl 50 MG Tab PO PRN (13:50)
[2024-02-16] MEDS ORDERED: FLU VACC TS2024-25(6MOS UP)/PF 45 MCG/0.5 ML SYRINGE IM SCH (13:50)
[2024-02-16] MEDS ORDERED: Acetaminophen 325 MG TABLET PO PRN (13:50)
[2024-02-16] MEDS ORDERED: Ondansetron HCl 2 MG / ML 2ML Vial IV PRN (13:50)
[2024-02-16] MEDS ORDERED: GuaiFENesin 100 MG/5 ML 5ML UDC PO PRN (13:50)
[2024-02-16 15:20] VITALS: BP 142/79
[2024-02-16 15:56] LABS: Prothrombin Time Results 62.2 Sec (9.7-11.5)
[2024-02-16 16:01] LABS: International Normalized Ratio 6.69
--- NOTE | 2024-02-16 17:23 | NUR ---
ADMIT/SHIFT SUMMARY PATIENT ADMITTED FROM ER AT 1515. PATIENT SETTLED INTO ROOM. PATIENT ORIENTED TO CALL LIGHT. PATIENT DENIES IGNITION RISK. SKIN CHECK COMPLETED WITH 2 RNS, NO OPEN WOUNDS NOTED. REDNESS NOTED TO COCCYX, PREVENTATIVE DRESSING APPLIED. PATIENT IS A&OX4. PATIENT DENIES NAUSEA, PAIN, AND SHORTNESS OF BREATH. PATIENT IS ON 2L SATURATING AT 97%. PATIENT DOES NOT USE OXYGEN AT HOME. PATIENT IS WHEELCHAIR BOUND AT BASELINE, PATIENT IS A 2P MAX ASSIST FOR TRANSFERS. PATIENT LIVES AT HOME WITH CAREGIVERS. PATIENT EATING AND DRINKING WELL. GAVE ONE DOSE OF LIQUID COUGH MEDICATION DUE TO PATIENT BEING UNABLE TO SWALLOW LARGE PILLS. CRITICAL RESULT FOR INR, DR. ASHLEY CALLED. PATIENT IS DAILY WEIGHT. PATIENT CALLS APPROPRIATELY. PATIENT IS PLEASANT AND COOPERATIVE WITH CARE.
[2024-02-16 17:24] LABS: BASOPHILS ABSOLUTE AUTO 0.02 K/mm3 (0.00-0.23); BASOPHILS PERCENT AUTO 0 % (0-2); EOSINOPHILS PERCENT AUTO 0 % (0-6); IMMATURE GRAN ABSOLUTE AUTO 0.05 K/mm3 (0.00-0.10); IMMATURE GRAN PERCENT AUTO 1 % (0-1); LYMPHOCYTES ABSOLUTE AUTO 0.88 K/mm3 (0.84-5.20); LYMPHOCYTES PERCENT AUTO 10 % (21-46); MONOCYTES ABSOLUTE AUTO 1.87 K/mm3 (0.16-1.47); MONOCYTES PERCENT AUTO 21 % (4-13); Mean Platelet Volume 10.8 fL (9.1-12.4); NEUTROPHILS ABSOLUTE AUTO 6.13 K/mm3 (1.96-9.15); NEUTROPHILS PERCENT AUTO 69 % (41-73); Platelet Count 162 K/mm3 (150-400); White Blood Cell Count 8.95 K/mm3 (4.00-11.30)
[2024-02-16 17:30] LABS: Albumin, Blood 3.2 g/dL (3.4-5.0); Albumin/Globulin Ratio 0.6 (0.8-1.8); Bilirubin, Total 2.9 mg/dL (0.1-1.0); Bun/Creatinine Ratio 43.2 (12.0-20.0); Calcium, Blood 10.3 mg/dL (8.5-10.1); Creatinine, Blood 0.63 mg/dL (0.40-1.00); Globulin, Blood 5.2 g/dL (2.2-4.0); Potassium, Blood 4.7 mmol/L (3.5-5.5); Total Protein, Blood 8.4 g/dL (6.4-8.2)
[2024-02-16 20:09] VITALS: BP 126/81
[2024-02-16] MEDS ORDERED: Docusate Sodium 100 MG Cap PO SCH (21:00)
[2024-02-16] MEDS ORDERED: Famotidine 10 MG/ML 2ML Vial IV SCH (21:00)
[2024-02-17 04:36] VITALS: BP 145/83
[2024-02-17 05:27] LABS: Albumin, Blood 3.1 g/dL (3.4-5.0); Albumin/Globulin Ratio 0.6 (0.8-1.8); Bilirubin, Total 2.4 mg/dL (0.1-1.0); Bun/Creatinine Ratio 50.2 (12.0-20.0); Calcium, Blood 10.1 mg/dL (8.5-10.1); Creatinine, Blood 0.52 mg/dL (0.40-1.00); Potassium, Blood 4.3 mmol/L (3.5-5.5); Total Protein, Blood 8.1 g/dL (6.4-8.2)
[2024-02-17 05:28] LABS: Prothrombin Time Results 65.8 Sec (9.7-11.5)
[2024-02-17 05:39] LABS: International Normalized Ratio 7.11
[2024-02-17] MEDS ORDERED: Omeprazole 20 MG CapCR PO SCH (06:00)
[2024-02-17] MEDS ORDERED: Potassium Chloride 10 Meq Tablet SA PO SCH (06:00)
--- NOTE | 2024-02-17 06:06 | NUR ---
SHIFT SUMMARY PT A&O X4 AT THE BEGINNING OF SHIFT. CONFUSED/DISORIENTED UPON AWAKENING SEVERAL TIMES THROUGH THE NIGHT. USUALLY EASY TO RE-ORIENT. BLE EDEMA CONTINUES, DISCOLORATION REMAINS UNCHANGED. PT TURNED/ REPOSITIONED THROUGH THE NIGHT. BRIEFS CHANGED NEEDED. CALL LIGHT WITHIN REACH. SIDERAILS UP X 2.
--- NOTE | 2024-02-17 06:16 | NUR ---
CRITICAL INR LAB RESULT WITH INR 7.11. DR BRAVO NOTIFIED. STATED TO HOLD DOSE OF WARFARIN FOR TODAY. PHARMACY NOTIFIED.
[2024-02-17 07:04] LABS: BASOPHILS ABSOLUTE AUTO 0.04 K/mm3 (0.00-0.23); BASOPHILS PERCENT AUTO 1 % (0-2); EOSINOPHILS ABSOLUTE AUTO 0.07 K/mm3 (0.00-0.68); EOSINOPHILS PERCENT AUTO 1 % (0-6); IMMATURE GRAN ABSOLUTE AUTO 0.02 K/mm3 (0.00-0.10); IMMATURE GRAN PERCENT AUTO 0 % (0-1); LYMPHOCYTES ABSOLUTE AUTO 1.12 K/mm3 (0.84-5.20); LYMPHOCYTES PERCENT AUTO 15 % (21-46); MONOCYTES ABSOLUTE AUTO 1.81 K/mm3 (0.16-1.47); MONOCYTES PERCENT AUTO 23 % (4-13); Mean Platelet Volume 10.9 fL (9.1-12.4); NEUTROPHILS ABSOLUTE AUTO 4.69 K/mm3 (1.96-9.15); NEUTROPHILS PERCENT AUTO 60 % (41-73); Platelet Count 165 K/mm3 (150-400); White Blood Cell Count 7.75 K/mm3 (4.00-11.30)
[2024-02-17 07:45] VITALS: BP 120/74
[2024-02-17] MEDS ORDERED: Phytonadione 5 MG Tab PO ONE (08:10)
[2024-02-17] MEDS ORDERED: Bumetanide 1 MG Tab PO SCH (09:00)
[2024-02-17] MEDS ORDERED: HydroCHLOROthiazide 25 mg Tab PO SCH (09:00)
[2024-02-17] MEDS ORDERED: Atenolol 25 MG Tab PO SCH (09:00)
[2024-02-17] MEDS ORDERED: Losartan Potassium 50 MG Tab PO SCH (09:00)
[2024-02-17] MEDS ORDERED: Atorvastatin 10 MG Tab PO SCH (09:00)
[2024-02-17] MEDS ORDERED: Enoxaparin 40 MG/0.4 ML SYR SC SCH (09:00)
[2024-02-17] MEDS ORDERED: Psyllium 1 EA Pack PO SCH (11:00)
[2024-02-17 16:31] VITALS: BP 129/85
[2024-02-17] MEDS ORDERED: MIRALAX1714 PO (17:23)
[2024-02-17] MEDS ORDERED: METAMUCIL POWD798 GM PO (17:26)
--- NOTE | 2024-02-17 18:02 | NUR ---
SHIFT SUMMARY: PT A/O X3-4. OCCASIONALLY FORGETFUL. WHEN ASKED, PT STATED [place] CRITICAL INR NOTED THIS AM OF 7.11. HOLDING WARFARIN AND ADDED ONE TIME DOSE OF VITAMIN K. ASSESSED PT SKIN, NO SIGNS OF BLEED. ROBITUSSIN GIVEN TWICE THIS SHIFT FOR DRY COUGH. PT ON 1L MAINTAINING SATS >90%. 4+ PITTING EDEMA IN LOWER EXTREMETIES. SEVERE NEUROPATHY, LEFT WORSE THAN RIGHT. ON TELE RUNNING AFIB IN THE 80'S. CALL LIGHT IN REACH. BED IN LOWEST POSITION.
[2024-02-17 19:15] VITALS: BP 121/87
[2024-02-18 03:20] VITALS: BP 137/83
--- NOTE | 2024-02-18 05:21 | NUR ---
VSS, O2 SATS >90% ON RA. PT ORIENTED X4 AT START OF SHIFT. PT WOKE UP AROUND 0100 CONFUSED AND CALLING OUT, SHE ASKED WHERE SHE WAS, WHEN INFORMED SHE WAS IN THE HOSPITAL SHE STATED SHE KNEW THAT ALREADY. SHORTLY AFTER PATIENT CALLED 911, AGAIN TALKED WITH PATIENT TO REORIENT TO SITUATION, NOT RECEPTIVE TO INFORMATION. PATIENT CALLED NURSERY SUPERVISOR MULTIPLE TIMES AND CALLED FAMILY/FRIENDS, MULTIPLE ATTEMPTS TO REORIENT WERE MADE, DECLINED MEDICATIONS. PT EVENTUALLY FELL ASLEEP.
[2024-02-18 05:23] LABS: Albumin, Blood 2.7 g/dL (3.4-5.0); Albumin/Globulin Ratio 0.6 (0.8-1.8); Bilirubin, Total 2.1 mg/dL (0.1-1.0); Bun/Creatinine Ratio 41.3 (12.0-20.0); Calcium, Blood 9.6 mg/dL (8.5-10.1); Creatinine, Blood 0.7 mg/dL (0.40-1.00); Globulin, Blood 4.7 g/dL (2.2-4.0); Potassium, Blood 3.6 mmol/L (3.5-5.5); Total Protein, Blood 7.4 g/dL (6.4-8.2)
[2024-02-18 06:19] LABS: BASOPHILS ABSOLUTE AUTO 0.02 K/mm3 (0.00-0.23); BASOPHILS PERCENT AUTO 0 % (0-2); EOSINOPHILS ABSOLUTE AUTO 0.09 K/mm3 (0.00-0.68); EOSINOPHILS PERCENT AUTO 2 % (0-6); IMMATURE GRAN ABSOLUTE AUTO 0.01 K/mm3 (0.00-0.10); IMMATURE GRAN PERCENT AUTO 0 % (0-1); LYMPHOCYTES ABSOLUTE AUTO 0.66 K/mm3 (0.84-5.20); LYMPHOCYTES PERCENT AUTO 12 % (21-46); MONOCYTES ABSOLUTE AUTO 1.33 K/mm3 (0.16-1.47); MONOCYTES PERCENT AUTO 24 % (4-13); Mean Platelet Volume 9.8 fL (9.1-12.4); NEUTROPHILS ABSOLUTE AUTO 3.43 K/mm3 (1.96-9.15); NEUTROPHILS PERCENT AUTO 62 % (41-73); Platelet Count 199 K/mm3 (150-400); White Blood Cell Count 5.54 K/mm3 (4.00-11.30)
[2024-02-18 06:37] LABS: International Normalized Ratio 2.03; Prothrombin Time Results 20.6 Sec (9.7-11.5)
[2024-02-18 07:45] VITALS: BP 132/88
[2024-02-18 14:10] VITALS: BP 164/91
[2024-02-18 14:15] VITALS: BP 135/99
[2024-02-18] MEDS ORDERED: NS 250 ML IV PRN (16:45)
[2024-02-18] MEDS ORDERED: Azithromycin 500 MG in NS 250 ML IV SCH (17:00)
[2024-02-18] MEDS ORDERED: CefTRIAXone Sodium 2,000 MG in NS 100 ML IV SCH (17:00)
[2024-02-18] MEDS ORDERED: Warfarin Sodium 2 MG Tab PO SCH (18:00)
[2024-02-18 19:23] VITALS: BP 129/78
--- NOTE | 2024-02-18 19:37 | NUR ---
SHIFT SUMMARY PT A&0X3, FORGETFUL AT TIMES, COULDN'T REMEMBER LOCATION. PT ADMITTED DUE TO CHF EXACERBATION. PT IS A TWO PERSON ASSIST. PT IS INC./CONT. DURING SHIFT NOTIFIED DOCTOR BONDS ABOUT COUGHING FIT PT HAD, PT HAD CONT. COUGHING. HER SATS DROPPED TO 82%, APPLIED 2L OF O2, SATS THEN WENT UP TO 93%. ASCULTATED LUNGS, HEARD CRACKLES IN LEFT LOWER LOBE, VSS. DOCTOR ORDERED REPEAT CHEST X-RAY. PT NOW ON ANTIBIOTICS. PT HAS INTERMITTENT COUGHING NOW. PT EDUCATED ON TURN COUGH DEEP BREATHING. PT ON TELE. PT ON CONT. PULSE OX. PT CALLS OUT FOR HELP, AND HAS BEEN EDUCATED ABOUT USING CALL LIGHT. CALL LIGHT IN REACH.
[2024-02-19 02:11] VITALS: BP 147/84
--- NOTE | 2024-02-19 05:26 | NUR ---
VSS, OXYGEN SATURATION AGAIN DROPPED BELOW 90% REQUIRING SUPPLEMENTAL OXYGEN, STARTED ON 3L TITRATED DOWN AND WEANED OFF COMPLETELY. PT CONTINUES HAVING EPISODES OF SEVERE CONFUSION, AT OTHER TIMES SHE SEEMS TO PLAY OFF THAT SHE IS AWARE OF HER SITUATION WHEN SHE ACTUALLY IS NOT, SAYS STRANGE THINGS. PT SLEPT MOST OF SHIFT. EDEMA IMPROVING.
[2024-02-19 06:33] LABS: International Normalized Ratio 1.8; Prothrombin Time Results 18.4 Sec (9.7-11.5)
[2024-02-19 06:50] LABS: Albumin, Blood 2.7 g/dL (3.4-5.0); Albumin/Globulin Ratio 0.6 (0.8-1.8); Bilirubin, Total 1.7 mg/dL (0.1-1.0); Bun/Creatinine Ratio 46.6 (12.0-20.0); Calcium, Blood 9.9 mg/dL (8.5-10.1); Creatinine, Blood 0.6 mg/dL (0.40-1.00); Globulin, Blood 4.9 g/dL (2.2-4.0); Potassium, Blood 2.9 mmol/L (3.5-5.5); Total Protein, Blood 7.6 g/dL (6.4-8.2)
[2024-02-19 07:50] VITALS: BP 117/78
[2024-02-19 07:54] LABS: BASOPHILS ABSOLUTE AUTO 0.02 K/mm3 (0.00-0.23); BASOPHILS PERCENT AUTO 0 % (0-2); EOSINOPHILS ABSOLUTE AUTO 0.03 K/mm3 (0.00-0.68); EOSINOPHILS PERCENT AUTO 1 % (0-6); IMMATURE GRAN ABSOLUTE AUTO 0.02 K/mm3 (0.00-0.10); IMMATURE GRAN PERCENT AUTO 0 % (0-1); LYMPHOCYTES ABSOLUTE AUTO 0.77 K/mm3 (0.84-5.20); LYMPHOCYTES PERCENT AUTO 15 % (21-46); MONOCYTES ABSOLUTE AUTO 1.11 K/mm3 (0.16-1.47); MONOCYTES PERCENT AUTO 21 % (4-13); Mean Platelet Volume 9.5 fL (9.1-12.4); NEUTROPHILS ABSOLUTE AUTO 3.36 K/mm3 (1.96-9.15); NEUTROPHILS PERCENT AUTO 63 % (41-73); Platelet Count 233 K/mm3 (150-400); White Blood Cell Count 5.31 K/mm3 (4.00-11.30)
[2024-02-19] MEDS ORDERED: Potassium Chloride 20 MEQ TabCR PO ONE (09:20)
[2024-02-19 15:04] VITALS: BP 146/87
[2024-02-19] MEDS ORDERED: HyDROXyzine HCl 25 MG Tab PO PRN (17:00)
[2024-02-19] MEDS ORDERED: Acetaminophen 325 MG TABLET PO ONE (17:20)
[2024-02-19] MEDS ORDERED: Warfarin Sodium 4 MG Tab PO ONE (18:00)
--- NOTE | 2024-02-19 18:23 | NUR ---
SHIFT SUMMARY PT CONT WITH LEVEL OF CARE. PT NOTED TO BE A&O X2-3 THIS SHIFT. PT REMAINED IN BED THIS SHIFT AND WAS REPOSITION Q2HR. PT NOTED TO GET CHOKED ON 1/2 OF A POTASSIUM TAB THIS SHIFT. PHYSICAN WAS NOTIFIED AND STATED TO START CRUSHING BIGGER PILLS. PT HAS ORDER FOR ST EVAL AND TX BUT REFUSED TO WORK WITH THEM THIS SHIFT. PT NOTED TO BE CONFUSED ON AND OFF THIS SHIFT BUT WORSENED THE DAY PROGRESSED. PT WAS TITRATED DOWN TO ROOM AIR BUT ENDED UP GETTING INTO A COUGHING EPISODE AND DESTATING AND REQUIRING 2L/NC. PT HAS VOICED C/O PAIN TO RUQ BUT REFUSED TO TAKE MEDICATION. PT ALSO REFUSED TO TAKE PO 1800 MEDICATION THIS SHIFT. STATED THAT SHE JUST WANTED MEDICATIONS TO BE PLACED THROUGH HER IV SITE. PALLATIVE CARE CONSULT ORDER THIS SHIT.
[2024-02-19 20:35] VITALS: BP 124/72
[2024-02-20 02:50] VITALS: BP 98/60
--- NOTE | 2024-02-20 04:54 | NUR ---
HEADER SET UP OPERATOR SUMMARY PT ABLE TO ANSWER ORIENTATION QUESTIONS APPROPRIATELY AT BEGINNING OF SHIFT; NOTED INTERMITTANT CONFUSION T/O THE NIGHT. PT IS ON TELE; RECEIVED 3X NOTIFICATION OF 13-18 RUN OF Relevvant. AFTER 3RD EPISODE VITALS WERE CHECKED; BLOOD PRESSURE WAS 98/60. PT DENIES CP, PALPITATIONS, AND SOB; IN GENERAL NO NOTED CHANGE. CALL TO SUPERVISOR CARDING/DR KAUFMAN; NO INTERVENTIONS AT THIS TIME, ORDERED MAGNESIUM BLOOD LEVEL WITH AM LABS. PT WAS NOTED TO COUGH WHEN DRINKING WATER T/O THE NIGHT. THE PT HAS STARTED TAKING WATER INTO HER MOUTH AND THEN USING THE SUCTION TO REMOVE THE WATER. PT IS FEARFUL OF CHOKING. ADVISED PT OF NEED TO BE EVALUATED BY ST; PT STATED SHE WOULD BE AGREEABLE TO SPEECH EVAL. PT GIVEN GLYCERN SWABS TO MOISTEN HER MOUTH. PT CALL LIGHT IS ACCESSIBLE. REGULAR INTERVAL ROUNDING COMPLETE TO ASSESS NEEDS. PT Q2 TURN T/O THE NIGHT THE PATIENT IS NOT SHIFTING HER OWN WEIGHT. EDUCATED ON PRESSURE INJURY PREVENTION.
[2024-02-20 06:39] VITALS: BP 118/62
[2024-02-20 07:11] LABS: International Normalized Ratio 2.38; Prothrombin Time Results 23.9 Sec (9.7-11.5)
[2024-02-20 07:15] LABS: Albumin, Blood 2.7 g/dL (3.4-5.0); Albumin/Globulin Ratio 0.5 (0.8-1.8); Bilirubin, Total 1.2 mg/dL (0.1-1.0); Bun/Creatinine Ratio 52.6 (12.0-20.0); Calcium, Blood 9.6 mg/dL (8.5-10.1); Creatinine, Blood 0.59 mg/dL (0.40-1.00); Magnesium, Blood 1.7 mg/dL (1.6-2.4); Potassium, Blood 3.1 mmol/L (3.5-5.5); Total Protein, Blood 7.7 g/dL (6.4-8.2)
[2024-02-20 07:18] VITALS: BP 129/83
[2024-02-20 07:19] VITALS: BP 129/83
[2024-02-20 08:11] LABS: BASOPHILS ABSOLUTE AUTO 0.02 K/mm3 (0.00-0.23); BASOPHILS PERCENT AUTO 0 % (0-2); EOSINOPHILS ABSOLUTE AUTO 0.01 K/mm3 (0.00-0.68); EOSINOPHILS PERCENT AUTO 0 % (0-6); IMMATURE GRAN ABSOLUTE AUTO 0.02 K/mm3 (0.00-0.10); IMMATURE GRAN PERCENT AUTO 0 % (0-1); LYMPHOCYTES ABSOLUTE AUTO 0.96 K/mm3 (0.84-5.20); LYMPHOCYTES PERCENT AUTO 15 % (21-46); MONOCYTES ABSOLUTE AUTO 1.22 K/mm3 (0.16-1.47); MONOCYTES PERCENT AUTO 19 % (4-13); Mean Platelet Volume 9.9 fL (9.1-12.4); NEUTROPHILS PERCENT AUTO 65 % (41-73); Platelet Count 213 K/mm3 (150-400); White Blood Cell Count 6.33 K/mm3 (4.00-11.30)
[2024-02-20] MEDS ORDERED: Potassium Chloride 20 MEQ/15 ML UDC PO ONE (08:40)
[2024-02-20 15:46] VITALS: BP 123/67
[2024-02-20] MEDS ORDERED: Warfarin Sodium 4 MG Tab PO SCH (18:00)
--- NOTE | 2024-02-20 18:17 | NUR ---
SHIFT SUMMARY PT CONT LEVEL OF CARE. PT WORKED WITH ST THIS AM. ST CHANGED PT TO A PUREE DIET AND NECTURE THICK LIQUIDS. PT DID REFUSE TO EAT BREAKFAST AND LUNCH BUT IS CURRENTLY EAT SUPPER AT THIS TIME. PLAN IS FOR PT TO GO TO A CARE FACILITY FAMILY IS LOOKING INTO ADULT FOSTER D/T PT UNABLE TO GO HOME AT THIS TIME. PALLATIVE CARE HAS CONSULTED WITH PT THIS SHIFT.
--- NOTE | 2024-02-20 18:25 | NUR ---
PT HAS BEEN TITRATED DOWN TO ROOM AIR THIS SHIFT STATS ARE IN MID 90S
[2024-02-20 19:37] VITALS: BP 107/60
[2024-02-21 03:50] VITALS: BP 140/82
--- NOTE | 2024-02-21 04:24 | NUR ---
CABLE CUTTER AND SWAGER SUMMARY NO ACUTE CHANGES. PT A/OX4 WITH INTERMITTANT CONFUSION. PT ABLE TO MAKE NEEDS KNOWN WHEN PROMPTED AND WILL AT TIMES USE CALL LIGHT. POOR ORAL INTAKE; PT NEEDS ENCOURAGEMENT TO DRINK FLUIDS. PT THREE DAYS W/O BOWEL MOVEMENT. PT EDUCATION ON NEED TO TAKE FLUIDS AND STOOL SOFTNERS. CALL LIGHT ACCESSIBLE. PT ON TELE; ONE BRIEF RUN OF SVT. NURSE AT BEDSIDE WITH EPISODE; PT WAS BEING CLEANED AND REPOSITIONED. PT WAS ASYMPTOMATIC.
[2024-02-21 05:21] LABS: Bun/Creatinine Ratio 61.2 (12.0-20.0); Creatinine, Blood 0.49 mg/dL (0.40-1.00)
[2024-02-21 05:22] LABS: International Normalized Ratio 3.65; Prothrombin Time Results 35.5 Sec (9.7-11.5)
[2024-02-21 06:42] LABS: BASOPHILS ABSOLUTE AUTO 0.02 K/mm3 (0.00-0.23); BASOPHILS PERCENT AUTO 0 % (0-2); EOSINOPHILS ABSOLUTE AUTO 0.05 K/mm3 (0.00-0.68); EOSINOPHILS PERCENT AUTO 1 % (0-6); IMMATURE GRAN ABSOLUTE AUTO 0.02 K/mm3 (0.00-0.10); IMMATURE GRAN PERCENT AUTO 0 % (0-1); LYMPHOCYTES ABSOLUTE AUTO 1.24 K/mm3 (0.84-5.20); LYMPHOCYTES PERCENT AUTO 17 % (21-46); MONOCYTES ABSOLUTE AUTO 1.55 K/mm3 (0.16-1.47); MONOCYTES PERCENT AUTO 21 % (4-13); Mean Platelet Volume 11.1 fL (9.1-12.4); NEUTROPHILS PERCENT AUTO 60 % (41-73); Platelet Count 148 K/mm3 (150-400); White Blood Cell Count 7.28 K/mm3 (4.00-11.30)
[2024-02-21 07:32] VITALS: BP 146/92
[2024-02-21] MEDS ORDERED: Potassium Chloride 20 MEQ/15 ML UDC PO SCH (09:00)
[2024-02-21 15:32] VITALS: BP 143/85
[2024-02-21] MEDS ORDERED: Bisacodyl 10 MG Supp PR PRN (16:50)
--- NOTE | 2024-02-21 17:30 | NUR ---
MET WITH PATIENT TO DISCUSS GOALS OF CARE. SHE IS SOFT SPOKEN. SHE REPORTED THAT SHE HAD DIFFICULTY TAKING THE ORAL POTASSIUM AND THE PROVIDER WAS CHANGING IT. SHE EXPRESSED THAT SHE IS NO LONGER ABLE TO TAKE CARE OF HERSELF AND THAT SHE CAN NOT EAT ENOUGH TO SURVIVE OFF OF. ENDED MY VISIT WHEN VISITORS ARRIVED. DISCUSSED CASE WITH PROVIDER, BEDSIDE RN, AND ST. PATIENT IS TAKING VERY SMALL BITES OF APPLE SAUCE. PC WILL CONTINUE TO FOLLOW
--- NOTE | 2024-02-21 18:39 | NUR ---
SHIFT SUMMARY PT CONT LEVEL OF CARE WITH NO ACUTE CHANGES NOTED THIS SHIFT. PT REMAINS A&O X3 WITH SOME INTERMITTEN CONFUSION. PT HAS RECIEVED PRN SUPPOSITORY WITH MED SOFT BM NOTED. PT CONT TO REMAIN ON ROOM AIR. PT CONT TO HAVE POOR PO INTAKE.
[2024-02-21 20:53] VITALS: BP 163/95
[2024-02-22 04:33] VITALS: BP 155/108
[2024-02-22 05:23] LABS: Bun/Creatinine Ratio 63.6 (12.0-20.0); Calcium, Blood 9.6 mg/dL (8.5-10.1); Creatinine, Blood 0.41 mg/dL (0.40-1.00); International Normalized Ratio 3.44; Potassium, Blood 3.6 mmol/L (3.5-5.5); Prothrombin Time Results 33.6 Sec (9.7-11.5)
--- NOTE | 2024-02-22 06:18 | NUR ---
ACID LOADER SUMMARY PATIENT AFFECT FLAT/WITHDRAWN. PT EXRESSED TO THIS RN THAT SHE WANTS TO DISCUSS GOING ON HOSPICE. SHE STATED THAT SHE FEELS SHE IS NOT IMPROVING. DISCUSSED IMPORTANCE OF NUTRITION. PT APPETITE IS POOR. PT REPORTED NAUSEA WITH INTAKE. PT STATES SHE IS REFUSING MEDICATIONS BECAUSE OF NAUSEA. MED WITH ZOFRAN PRIOR TO MORNING MEDS; PT STILL REFUSED OMEPROZOLE. PT ABLE TO MAKE NEES KOWN. CALL LIGHT IN REACH.
[2024-02-22 08:25] VITALS: BP 156/92
[2024-02-22] MEDS ORDERED: Polyethylene Glycol 3350 17 gm PO PRN (11:25)
--- NOTE | 2024-02-22 14:16 | NUR ---
GOALS OF CARE: MET WITH PT AND NIECE AT PT'S BEDSIDE. NIECE (KATIANA VALERIO) IS PT'S MEDICAL POA, LISTED IN ADVANCE DIRECTIVE 02-15-2019. HONG TALKS ABOUT WANTING TO GET BETTER AND "NOT GIVING UP". SPEECH AND OT BOTH RECOMMEND HOME HEALTH. PT ACKNOWLEDGES SHE IS NO LONGER ABLE TO CARE FOR HERSELF AT HOME. PT WOULD LIKE TO PURSUE PLACEMENT WITH AN ADULT FOSTER HOME. NIECE WILL BE CHECKING [facility] AVAILABILITY. KATIANA PROVIDED A COPY OF ADVANCE DIRECTIVE, PLACED COPY ON CHART AND ONE SENT TO [employer] FOR SCANNING. FILLED OUT NEW POLST TO REFLECT DNR/SELECTIVE TREATMENT. POLST PENDING PROVIDER SIGNATURE. UPDATES PROVIDED TO PRIMARY RN AND MECHANIC INSULATOR.
[2024-02-22 16:12] VITALS: BP 134/85
--- NOTE | 2024-02-22 18:20 | NUR ---
SHIFT SUMMARY PT CONT LEVEL OF CARE WITH NO ACUTE CHANGES NOTED. PT REMAINS A&OX 4. PT WORKED WITH THERAPY THIS SHIFT AND SET ON EDGE OF BED. PT CONT TO REMAIN ON ROOM AIR THIS SHIFT OF SATS REMAIN IN MID 90S. PT STATED THAT SHE NO LONGER WANT TO PRSUME HOSPICE. FAMILY CONT TO LOOK INTO ADULT FOSTER HOMES.
[2024-02-22 20:00] VITALS: BP 134/84
[2024-02-23 05:48] VITALS: BP 143/86
[2024-02-23 06:12] LABS: International Normalized Ratio 3.33; Prothrombin Time Results 32.6 Sec (9.7-11.5)
--- NOTE | 2024-02-23 06:35 | NUR ---
TRIPLE AIR VALVE TESTER SUMMARY NO ACUTE EVENTS. PT ABLE TO MAKE NEEDS KNOWN; CALL LIGHT IN REACH. PT REPOSITIONED AND CHANGED NEEDED FOR EPISODES OF INCONT--PT NEEDS ENCOURAGEMENT TO ALLOW INTERVENTIONS NEEDED. PT REFUSED PRILOSEC AGAIN THIS MORNING. PT DOES NOT LIKE THE TEXURE OF CAPSULES IN HER APPLESAUCE. PT C/O OF SOME NAUSEA THIS AM; MED WITH ZOAN.
[2024-02-23 07:19] VITALS: BP 142/74
--- NOTE | 2024-02-23 14:09 | NUR ---
PER NOC RN REPORT. PT REGULARLY DESAT DURING SLEEP AND PT "TURNED BLUE" WITH TURNS. PT REQUIRES 1-2L NC OVERNIGHT. DR. GRIDER NOTIFIED. SLEEP OXIMETER STUDY ORDERED.
[2024-02-23 15:07] VITALS: BP 143/83
[2024-02-23 19:25] VITALS: BP 146/81
[2024-02-24 05:27] VITALS: BP 158/94
--- NOTE | 2024-02-24 06:20 | NUR ---
Shift summary. Patient underwent sleep study overnight, currently on 1.5L O2 via NC. BP elevated this morning, otherwsise VSS. Incontinent of urine, pt refused use of purewick overnight, briefs changed as needed. Pt rounded on hourly. Pt denied pain overnight.
[2024-02-24 06:31] LABS: International Normalized Ratio 2.22; Prothrombin Time Results 22.4 Sec (9.7-11.5)
[2024-02-24 07:22] VITALS: BP 160/108
[2024-02-24 16:11] VITALS: BP 126/89
--- NOTE | 2024-02-24 16:24 | NUR ---
PT IS ALERT AND ORIENTED X4, DECLINES TO GET OUT OF BED. ENCOURAGED DANGLE AT SIDE OF BED. BLE PURPLE FROM TOES TO ANKLES, LLE COOL TO TOUCH. DOPPLER USED TO LOCATE PULSE. PEDAL PULSES WEAK AND THREADY. MD IS AWARE. MEDS CRUSHED TO A FINE POWDER IN APPLE SAUCE. BOWEL CARE STARTED TODAY. PT DENIES CHEST PAIN, DENIES SOB WITH 1.5L NC. Q 2 HOUR TURNS AND SUPPORT WITH PILLOWS. BLE ELEVATED AT HEART LEVEL. PT INCONT OF URINE AND BOWEL. TREATED FOR NAUSEA AT BEGINNING OF SHIFT. DIET CHANGED TO REFLECT PT PREFERENCE IN TEXTURE. ABLE TO MAKE NEEDS KNOWN. COOPERATIVE WITH CARES.
[2024-02-24] MEDS ORDERED: Warfarin Sodium 2 MG Tab PO ONE (18:00)
[2024-02-24 20:35] VITALS: BP 141/93
[2024-02-25 04:42] VITALS: BP 142/71
[2024-02-25 05:25] LABS: International Normalized Ratio 1.67; Prothrombin Time Results 17.2 Sec (9.7-11.5)
[2024-02-25 07:33] VITALS: BP 121/80
[2024-02-25] MEDS ORDERED: BISA10S PR (10:56)
[2024-02-25] MEDS ORDERED: BUME1 PO (10:56)
[2024-02-25] MEDS ORDERED: HYDHCL25 PO (10:57)
--- NOTE | 2024-02-25 14:18 | NUR ---
DISCHARGE NOTE: MED[facility] TRANSPORT ARRIVED TO TRANSPORT PATIENT FOR DISCHARGE. PATIENT'S FAMILY COLLECTED BELONGINGS AND TOOK THEM. PATIENT'S IV WAS REMOVED. NO SIGNS OR SYMPTOMS OF DISTRESS DURING DISCHARGE.
[2024-02-25] MEDS ORDERED: Warfarin Sodium 4 MG Tab PO ONE (18:00)
== END 2024-02-25 14:02 | disposition home health service (06) | DRG 291 ==
LOC: ER 09:21 → MEDS 14:09 → ENPENDDIS 02-25 10:30 → MEDS 02-25 14:02
PROVIDERS: Emergency Medicine; Family Medicine; Student in an Organized Health Care Education/Training Program; ADMIT Family Medicine
DX: I11.0 Hypertensive heart disease with heart failure (principal); I50.33 Acute on chronic diastolic (congestive) heart failure; J96.91 Respiratory failure, unspecified with hypoxia; I47.20 Ventricular tachycardia, unspecified; I42.0 Dilated cardiomyopathy; Z66 Do not resuscitate; Z74.01 Bed confinement status; I48.91 Unspecified atrial fibrillation; K21.9 Gastro-esophageal reflux disease without esophagitis; K74.60 Unspecified cirrhosis of liver; R13.10 Dysphagia, unspecified; E87.6 Hypokalemia; I73.9 Peripheral vascular disease, unspecified; E78.5 Hyperlipidemia, unspecified; G60.0 Hereditary motor and sensory neuropathy; M19.90 Unspecified osteoarthritis, unspecified site; G62.9 Polyneuropathy, unspecified; Z88.2 Allergy status to sulfonamides; Z88.0 Allergy status to penicillin; Z79.01 Long term (current) use of anticoagulants; Z79.899 Other long term (current) drug therapy; Z90.49 Acquired absence of other specified parts of digestive tract; Z98.890 Other specified postprocedural states; N39.41 Urge incontinence; Z87.891 Personal history of nicotine dependence
CPT/HCPCS: 0202U; 36415; 71045; 80048; 80053; 83735; 83880; 84145; 84484; 85025; 85610; 92526; 92610; 93306; 94760; 94762; 97110; 97161; 97166; 97530; 99284-25; A9270; J0456; J0696; J2405; J7050